=== PATIENT | female | born 1990 | race African-American/Black ===

== ENCOUNTER 2019-09-13 22:48 | Observation (INO) | payer OTHER, SELFPAY ==
--- NOTE | 2019-09-13 22:47 | PC.NURSE ---
Spoke with Adri HELLER in L&D. Gave pt info and s/s to Adri HELLER. Pt taken to L&D dept via ED w/c by Alejandro Joaquin RN.
[2019-09-13 23:20] VITALS: BP 120/59; PULSE 88
[2019-09-13 23:31] VITALS: BP 117/63; PULSE 86
[2019-09-13 23:46] VITALS: BP 123/67; PULSE 88
[2019-09-14 00:01] VITALS: BP 112/55; PULSE 74
[2019-09-14 00:17] VITALS: BP 125/66; PULSE 115
[2019-09-14 00:39] LABS: Add Urine Microscopic? YES; Appearance Urine Cloudy (Clear); Bacteria Urine 2+ /hpf; Bilirubin Urine Negative (Negative); Blood Urine Negative (Negative); Color Urine Yellow (Yellow); Glucose Urine UA Negative (Negative); Ketones Urine Negative (Negative); Leukocyte Esterase Ur Trace LEU/UL (NEGATIVE); Mucus Urine Few /lpf; Nitrate Urine Negative (Negative); Protein Urine 2+ mg/dL (Negative); Specific Grav Ur 1.026 (1.001-1.035); Squamous Epithelial Cell Urine Many /hpf (Few)
--- NOTE | 2019-09-14 01:28 | PC.NURSE ---
pt came from ER @2248-09/13/2019 c/o spotting, vaginal pain, abdominal pain that started today. Pt sees at [facility]. pt denies any spotting or bleeding after using bathroom here. 09/14/2019-0004- Spoke with Dr. Alvarez, discussed reason for visit, cervical exam ordered and send UA. will call with results. 09/14/2019-0045- Spoke with Dr. Alvarez, UA results discussed. will send UCX and prescribe pt Macrobid 100mg BID x 7 days. pt to d/c home and to call her in am to make regular appt and f/u appt. pt to return if further concerns.
--- NOTE | 2019-09-22 14:43 | PM.OBTRLD ---
OB - Triage/Final Diagnosis Evaluation Laboratory results: Laboratory Tests 09/14/19 00:24 Urine Color Yellow Urine Appearance Cloudy H Urine pH 6.0 Ur Specific [place] 1.026 Urine Protein 2+ H Urine Glucose (UA) Negative Urine Ketones Negative Ur Blood (Man) Negative Urine Nitrate Negative Urine Bilirubin Negative Urine Urobilinogen 2.0 H Ur Leukocyte Esterase Trace H Urine RBC 3-5 H Urine WBC 7-9 H Ur Squamous Epith Cells Many H Urine Bacteria 2+ H Hyaline Casts Urine Mucus Few H Urine Yeast (Budding) Final Diagnosis (1) False labor: Code(s): O47.9 - False labor, unspecified Status: Acute
== END 2019-09-14 01:00 | disposition home or self-care (01) ==
PROVIDERS: Admitting Provider Obstetrics & Gynecology; Visit Provider Obstetrics & Gynecology
DX: O47.03 False labor before 37 completed weeks of gestation, third trimester (principal); Z3A.34 34 weeks gestation of pregnancy
CPT/HCPCS: 81001; 87086; 87088; G0378; G0379

== ENCOUNTER 2020-01-26 21:15 | Emergency (ER) | payer OTHER, SELFPAY ==
--- NOTE | ~2020-01-26 | XR_ITS ---
EXAMINATION: XR chest 1V portable DATE: 01/26/2020 22:14 INDICATION: Shortness of breath and fever and cough. TECHNIQUE: A single frontal view of the chest was obtained. COMPARISON: Chest 2 views 06/15/2019 FINDINGS: The chest demonstrates clear lungs without pneumonia, pleural effusion, or pneumothorax. Th e heart size is normal. IMPRESSION: 1. No acute cardiopulmonary disease. Reviewed, dictated and finalized at location A.
[2020-01-26 21:18] VITALS: BP 149/89; PULSE 131; RESP 24; TEMP 38.7; O2SAT 97
[2020-01-26 21:40] LABS: Basophils Percent Auto 0.2 % (0.2-1.2); Eosinophils Percent Auto 0.8 % (0-4.4); Hematocrit 35.1 % (37.0-47.0); Immature Granulocyte Absolute 0.01 K/mm3 (0.00-0.031); Immature Granulocyte Percent A 0.2 % (0-0.5); Lymphocytes Absolute Auto 0.97 K/mm3 (0.9-3.2); Lymphocytes Percent Auto 18.8 % (18.3-44.2); Mean Corpuscular HGB Conc 31.3 g/dl (32-36); Mean Corpuscular Volume 79.8 fl (80-100); Mean Platelet Volume 9.9 fl (7.4-10.4); Monocytes Absolute Auto 0.6 K/mm3 (0.1-0.6); Monocytes Percent Auto 10.6 % (2.6-8.5); Neutrophils Absolute Auto 3.6 K/mm3 (1.3-6.7); Neutrophils Percent Auto 69.4 % (45.5-73.1); Platelet Count Result 329 k/mm3 (150-375); Red Cell Distribution Width 15.8 % (11.5-14.5); White Blood Count 5.2 K/mm3 (4.5-10.0)
[2020-01-26 21:51] LABS: Blood Urea Nitrogen 9 mg/dL (7-17); Calcium 9.2 mg/dL (8.4-10.2); Carbon Dioxide 25 mmol/L (22-30); Chloride 104 mmol/L (98-107); Estimated CRCL calculation 120 ml/min; Estimated Glomerular Filt Rate > 60; Glucose 99 mg/dL (65-105); Potassium 4.1 mmol/L (3.4-5.0); Sodium 136 mmol/L (137-145)
--- NOTE | 2020-01-26 22:49 | ED.SOB ---
HPI - SOB/Dyspnea General Chief Complaint: Shortness of Breath/Dyspnea Stated Complaint: my asthma Time Seen by Provider: 01/26/20 22:41 Related Data Allergies Allergy/AdvReac Type Severity Reaction Status Date / Time shellfish derived Allergy Intermediate hives Verified 02/22/19 19:42 shrimp Allergy Intermediate Other Verified 02/22/19 19:42 [facility] Past Medical History Medical History (Updated 01/27/20 @ 00:03 by Surekha Nova MD) Asthma Surgical History Surgical History (Updated 06/15/19 @ 21:05 by Harman Sneed) No history of previous surgery Social History Social History (Updated 06/15/19 @ 21:05 by Harman Sneed) Smoking status: Never smoker Gender identity (if verbalized by the patient): Female Course Reevaluation(s) Reevaluation #1: Went back into check on the patient and her lungs are completely clear after the breathing treatment. She says that she needs to COVID test because she has a 3-month-old at home. I told her that she can get that outpatient with her primary care physician or at 1 of the local clinics that offer the test. She asked for a muscle relaxer, for the pain with coughing. Date: 01/27/20 Time: 00:04 Vital Signs Vital signs: Vital Signs Temperature 101.7 F H 01/26/20 21:18 Pulse Rate 131 H 01/26/20 21:18 Respiratory Rate 24 H 01/26/20 21:18 Blood Pressure 149/89 H 01/26/20 21:18 Pulse Oximetry 97 01/26/20 21:18 Temperature 101.7 F H 01/26/20 21:18 Pulse Rate 70 01/26/20 23:09 Respiratory Rate 16 01/26/20 23:09 Blood Pressure 136/69 01/26/20 22:55 Pulse Oximetry 98 01/26/20 22:55 MDM - SOB/Dyspnea Medical Records Attestation: I reviewed the patient's medical records. Lab Data Attestation: I reviewed the patient's lab results. Result diagrams: 01/26/20 21:33 01/26/20 21:33 Labs: Lab Results 01/26/20 01/26/20 Range/Units 21:33 21:33 WBC 5.2 (4.5-10.0) K/mm3 RBC 4.40 (4.2-5.4) M/mm3 Hgb 11.0 L (12.0-15.0) g/dL Hct 35.1 L (37.0-47.0) % MCV 79.8 L (80-100) fl MCH 25.0 L (26-34) pg MCHC 31.3 L (32-36) g/dl RDW 15.8 H (11.5-14.5) % Plt Count 329 (150-375) k/mm3 MPV 9.9 (7.4-10.4) fl Immature Gran % (Auto) 0.2 (0-0.5) % Neut % (Auto) 69.4 (45.5-73.1) % Lymph % (Auto) 18.8 (18.3-44.2) % [place] % (Auto) 10.6 H (2.6-8.5) % Eos % (Auto) 0.8 (0-4.4) % Baso % (Auto) 0.2 (0.2-1.2) % Lymph # (Auto) 0.97 (0.9-3.2) K/mm3 [place] # (Auto) 0.6 (0.1-0.6) K/mm3 Eos # (Auto) 0.0 (0-0.3) K/mm3 Baso # (Auto) 0.0 (0.0-0.1) K/mm3 Abs Immat Gran (auto) 0.01 (0.00-0.031) K/mm3 Absolute Neuts (auto) 3.6 (1.3-6.7) K/mm3 Absolute Nucleated RBC 0.0 (0.0-0.012) K/mm3 Nucleated RBC % 0.0 (0.0-0.2) % Sodium 136 L (137-145) mmol/L Potassium 4.1 (3.4-5.0) mmol/L Chloride 104 (98-107) mmol/L Carbon Dioxide 25 (22-30) mmol/L BUN 9 (7-17) mg/dL Creatinine 0.80 (0.7-1.0) mg/dL Estim Creat Clear Calc 120 ml/min Estimated GFR > 60 (59 - ) Glucose 99 (65-105) mg/dL Calcium 9.2 (8.4-10.2) mg/dL Imaging Data Attestation: I personally reviewed and interpreted this imaging study as follows: My impression: NAD Discharge Plan Discharge Clinical Impression: Asthma attack Qualifiers: Asthma severity: mild Asthma persistence: unspecified Qualified Code(s): J45.901 - Unspecified asthma with (acute) exacerbation Patient Disposition: Home, Self-Care Condition: Improved Instructions: Asthma (ED) Prescriptions: New methocarbamol 500 mg tablet 500 mg PO TID Qty: 10 RF: 0 No Action nitrofurantoin monohyd/m-cryst [Macrobid] 100 mg Capsule 100 mg PO Q12H Qty: 14 RF: 0 Follow-up/Referrals: PHYSICIAN,LATHE TENDER [Primary Care Provider] - Jerry Manriquez MD [Physician] - (Call make a new patient appointment) Time of Disposition: 00:03
[2020-01-26 22:55] VITALS: BP 136/69; PULSE 105; RESP 18; O2SAT 98
[2020-01-26] MEDS: ACETAMINOPHEN 500 MG TABLET 1000 MG PO (23:00)
[2020-01-26 23:01] VITALS: PULSE 66; RESP 16
[2020-01-26] MEDS: ALBUTEROL SULFATE NEB 2.5 MG/3 ML INH 5 MG INHALATION (23:01)
--- NOTE | 2020-01-26 23:05 | PC.NURSE ---
Patient reports wanting to be tested for Covid and also requesting a prescription for muscle relaxers at discharge, EDP aware.
[2020-01-26 23:09] VITALS: PULSE 70; RESP 16
[2020-01-27 00:09] VITALS: BP 142/89; PULSE 97; RESP 18; TEMP 37.3; O2SAT 99
== END 2020-01-27 00:10 | disposition home or self-care (01) ==
PROVIDERS: Emergency Provider Emergency Medicine
DX: J45.901 Unspecified asthma with (acute) exacerbation (principal)
CPT/HCPCS: 36415; 71045; 80048; 85025; 94640; 99283; A9270

== ENCOUNTER 2020-01-29 18:57 | Emergency (ER) | payer OTHER, SELFPAY ==
[2020-01-29 19:06] VITALS: BP 128/82; PULSE 110; RESP 18; TEMP 36.6; O2SAT 96
--- NOTE | 2020-01-29 20:12 | ECG_ITS ---
Measurements Intervals [place] Rate: 100 P: 14 AL: 136 QRS: 0 QRSD: 92 T: 22 QT: 330 QTc: 426 Interpretive Statements SINUS TACHYCARDIA INCOMPLETE RIGHT BUNDLE BRANCH BLOCK VOLTAGE CRITERIA FOR LVH BORDERLINE ECG Electronically Signed On 01-30-2020 13:57:23 CDT by Moises Rapp D.O.
[2020-01-29 20:26] VITALS: BP 126/80; PULSE 100; RESP 21; O2SAT 93
--- NOTE | 2020-01-29 20:26 | ED.ASTHMA ---
HPI - Asthma General Chief Complaint: Asthma Stated Complaint: asthma Time Seen by Provider: 01/29/20 19:40 Source: patient Mode of arrival: ambulatory Limitations: no limitations History of Present Illness HPI Narrative: This patient is a 29 year old female with history of asthma who presents for evaluation of cough, chest pain and upper back pain. Patient states 4 days ago she developed cough productive with yellow sputum. She also reports mid chest pain with coughing and inspiration for 4 days. She also reports upper back pain. She had a fever 2 days ago when she was evaluated in ER. She states she has returned because her symptoms have not resolved and she did not receive a COVID test. She denies shortness of breath, nausea, vomiting or dizziness. She has not had to use in her nebulizer or inhaler. Her symptoms have not worsened. She is only taking a muscle relaxer for her symptoms. Related Data Allergies Allergy/AdvReac Type Severity Reaction Status Date / Time shellfish derived Allergy Intermediate hives Verified 02/22/19 19:42 shrimp Allergy Intermediate Other Verified 02/22/19 19:42 Review of Systems Review of Systems: All systems reviewed & are unremarkable except as noted in HPI and below Constitutional: Constitutional: Denies chills and Reports fever(s) ENT: Denies nasal congestion and Denies sore throat Cardiovascular: Cardiovascular: Reports chest pain, Denies rapid heart rate and Denies radiating jaw, neck or arm pain Respiratory: Respiratory: Reports chest congestion, Reports cough and Denies dyspnea Gastrointestinal: Gastrointestinal: Denies abdominal pain, Denies diarrhea, Denies nausea and Denies vomiting Musculoskeletal: Musculoskeletal: Reports back pain PMFSH Past Medical History Medical History Asthma Surgical History Surgical History (Updated 06/15/19 @ 21:05 by Harman Sneed) No history of previous surgery Social History Social History (Updated 06/15/19 @ 21:05 by Harman Sneed) Smoking status: Never smoker Gender identity (if verbalized by the patient): Female Exam Narrative: Exam Narrative: GENERAL: Well-appearing, well-nourished, and in no acute distress. HEAD: Normocephalic, atraumatic EYES: PERRLA and EOMI, conjunctiva clear without discharge EARS: TM's clear bilaterally without erythema or dullness NOSE: Nares clear, no rhinorrhea or epistaxis THROAT:Mucous membranes moist, Oropharynx normal without erythema, exudate, peritonsillar swelling or fluctuance NECK: Supple, without lymphadenopathy or mass RESPIRATORY: No respiratory distress, Airway patent, Respirations non-labored, Clear to auscultation without rales, rhonchi or wheeze HEART: Regular rate and rhythm. No murmur heard. Normal peripheral pulses. ABDOMEN: Soft, nontender, nondistended, normal active bowel sounds. No masses. No rebound or guarding, No organomegaly. EXTREMITIES: No edema, normal strength with full range of motion. SKIN: Warm, dry, normal color without rash NEURO: Alert and oriented x3. CN 2-12 grossly intact. No focal deficits. PSYCH: Normal mood and affect. Course Reevaluation(s) Reevaluation #1: I reviewed patient's last visit. She had negative chest xray. Her d dimer is negative. I do not believe she needs another chest xray as she has not hypoxia, wheezing or respiratory distress. It seems patient really just wants a COVID test. PCP is Dr. Devi Childs Date: 01/29/20 Time: 21:18 Vital Signs Vital signs: Vital Signs Temperature 97.8 F 01/29/20 19:06 Pulse Rate 110 H 01/29/20 19:06 Respiratory Rate 18 01/29/20 19:06 Blood Pressure 128/82 01/29/20 19:06 Pulse Oximetry 96 01/29/20 19:06 Temperature 97.8 F 01/29/20 19:06 Pulse Rate 99 01/29/20 21:34 Respiratory Rate 32 H 01/29/20 21:34 Blood Pressure 130/73 01/29/20 21:34 Pulse Oximetry 100 01/29/20 21:[address] [facility] -
[2020-01-29 20:34] LABS: Basophils Percent Auto 0.2 % (0.2-1.2); Eosinophils Percent Auto 0.4 % (0-4.4); Hematocrit 35.1 % (37.0-47.0); Hemoglobin 10.5 g/dL (12.0-15.0); Immature Granulocyte Absolute 0.01 K/mm3 (0.00-0.031); Immature Granulocyte Percent A 0.2 % (0-0.5); Lymphocytes Absolute Auto 1.64 K/mm3 (0.9-3.2); Mean Corpuscular HGB Conc 29.9 g/dl (32-36); Mean Corpuscular Hemoglobin 24.6 pg (26-34); Mean Corpuscular Volume 82.4 fl (80-100); Mean Platelet Volume 10.5 fl (7.4-10.4); Monocytes Absolute Auto 0.4 K/mm3 (0.1-0.6); Monocytes Percent Auto 8.5 % (2.6-8.5); Neutrophils Absolute Auto 2.7 K/mm3 (1.3-6.7); Neutrophils Percent Auto 56.7 % (45.5-73.1); Platelet Count Result 292 k/mm3 (150-375); Red Blood Count 4.26 M/mm3 (4.2-5.4); Red Cell Distribution Width 15.5 % (11.5-14.5); White Blood Count 4.8 K/mm3 (4.5-10.0)
[2020-01-29 20:41] LABS: INR 1.1; Partial Thromboplastin Time 31.7 SECONDS (22.3-36.8); Prothrombin Time 13.7 Seconds (11.1-14.7)
[2020-01-29 20:43] LABS: Hypochromasia 1+ (NORMAL); Platelet Estimate Adequate (Adequate)
[2020-01-29 20:44] LABS: Alanine Aminotransferase 11 U/L (4-35); Albumin Level 4.1 g/dL (3.5-5.1); Alkaline Phosphatase 60 U/L (38-126); Aspartate Amino Transferase 22 U/L (14-36); Bilirubin,Total 0.1 mg/dL (0.2-1.3); Blood Urea Nitrogen 11 mg/dL (7-17); Calcium 8.9 mg/dL (8.4-10.2); Carbon Dioxide 27 mmol/L (22-30); Chloride 103 mmol/L (98-107); D Dimer 0.39 ug/mL (<0.48); Estimated CRCL calculation 120 ml/min; Estimated Glomerular Filt Rate > 60; Glucose 113 mg/dL (65-105); Ovalocytes 1+ (NORMAL); Sodium 137 mmol/L (137-145)
[2020-01-29] MEDS: KETOROLAC (*BKC) 60 MG/2 ML VIAL IM (21:08)
[2020-01-29 21:09] VITALS: BP 126/81; PULSE 94; RESP 17; O2SAT 97
[2020-01-29 21:14] VITALS: BP 122/70; PULSE 78; RESP 18; O2SAT 98
[2020-01-29 21:34] VITALS: BP 130/73; PULSE 99; RESP 32; O2SAT 100
[2020-01-30 12:43] LABS: SARS-CoV-2 RNA PCR Positive
== END 2020-01-29 21:36 | disposition home or self-care (01) ==
PROVIDERS: Emergency Provider General Practice
DX: U07.1 COVID-19 (principal); R00.0 Tachycardia, unspecified
CPT/HCPCS: 36415; 80053; 85025; 85380; 85610; 85730; 87635; 93005; 96372; 99283; C9803; J1885; U0003

== ENCOUNTER 2020-07-18 16:32 | Emergency (ER) | payer OTHER, SELFPAY ==
--- NOTE | ~2020-07-18 | CT_ITS ---
EXAMINATION: CTA chest PE protocol DATE: 07/18/2020 17:47 INDICATION: Chest pain, history of COVID 19, elevated d-dimer TECHNIQUE: Computed tomography angiography (CTA) of the chest was performed with 100 mL Omnipaque-350 intravenous contrast timed to evaluate the pulmonary arteries. Coronal maximum intensity projection 3D-reconstructions were created by the technologist. The dose-length product (DLP) was 900.29 mGy-cm. Automated exposure control and iterative reconstruction technique were employed. COMPARISON: None. FINDINGS: The pulmonary arteries are moderately well-opacified. No pulmonary embolism is identified. The lungs are free of acute opacities. There is no pleural effusion or pneumothorax. No pathologicall y enlarged thoracic lymph nodes are identified. The heart size is normal. Triangular soft tissue dens ity of the anterior mediastinum likely reflects residual thymus. IMPRESSION: 1. No pulmonary embolism or acute cardiopulmonary abnormality. Reviewed, dictated and finalized at location A. ING ENGINEER
--- NOTE | ~2020-07-18 | XR_ITS ---
EXAMINATION: XR chest 2V DATE: 07/18/2020 17:12 INDICATION: Chest pain TECHNIQUE: Frontal and lateral views of the chest are obtained COMPARISON: 01/26/2020 FINDINGS: The lungs are free of acute opacities. There is no pleural effusion or pneumothorax. The ca rdiomediastinal silhouette is normal. The visualized bones and soft tissues are unremarkable. IMPRESSION: 1. No acute cardiopulmonary abnormality. Reviewed, dictated and finalized at location A. CARMAN
--- NOTE | 2020-07-18 16:39 | ED.CHESTPAIN ---
HPI - Chest Pain General Chief Complaint: Chest Pain Stated Complaint: CP Time Seen by Provider: 07/18/20 16:39 Source: patient Mode of arrival: ambulatory Limitations: no limitations History of Present Illness HPI narrative: Patient is a 29-year-old female who presents for evaluation of intermittent chest pain over the past week. Patient states she intermittently will experience sharp chest pain in the center of her chest that seem to occur randomly. She does not report any radiation of the pain to the neck, jaw, shoulders, back or lower flanks. No associated palpitations, nausea, vomiting, diaphoresis or shortness of breath with the pain. Patient gets a Depo shot. She does not smoke. She had a Covid infection over the summer in January, was not hospitalized for this. No recent heavy lifting. Exertional activities do not worsen the symptoms. No fever, chills, cough. No leg swelling or calf pain. No recent car or air travel. No history of DVT. No current pain at the time of assessment in the ER. She states she was putting off getting checked out but wanted to ensure nothing serious was going on. Related Data Allergies Allergy/AdvReac Type Severity Reaction Status Date / Time shellfish derived Allergy Intermediate hives Verified 02/22/19 19:42 shrimp Allergy Intermediate Other Verified 02/22/19 19:42 Review of Systems Review of Systems: Narrative: CONSTITUTIONAL: Denies fever, chills, or sweats. ENT: Denies rhinorrhea, congestion, sore throat, or otalgia. CARDIOVASCULAR: Denies current chest pain, palpitations, or edema. RESPIRATORY: Denies cough or dyspnea. GASTROINTESTINAL: Denies abdominal pain, nausea, vomiting, or diarrhea. GENITOURINARY: Denies dysuria or hematuria. SKIN: Denies rash or itching. MUSCULOSKELETAL: Denies back pain, joint pain, or myalgia. NEUROLOGIC: Denies headache, numbness, or weakness. [facility] Past Medical History Medical History (Updated 07/18/20 @ 18:15 by Elisha Rowland MD) Asthma Surgical History Surgical History No history of previous surgery Social History Social History Smoking status: Never smoker Gender identity (if verbalized by the patient): Female Exam Narrative: Exam Narrative: GENERAL: Awake, alert, conversant HEAD: Normocephalic, atraumatic. EYES: PERRLA and EOMI. ENT: Nares clear, no rhinorrhea or epistaxis. Mucous membranes moist. NECK: Supple. CHEST: No respiratory distress, breathing even and non labored, no chest wall tenderness HEART: Regular rate, sinus rhythm ABDOMEN:Non distended, non tender EXTREMITIES: Normal range of motion. No edema. SKIN: Warm, dry, no rash. NEURO:No focal deficits. Alert and oriented x3 Course Vital Signs Vital signs: Vital Signs Temperature 36.7 C 07/18/20 16:40 Pulse Rate 103 H 07/18/20 16:40 Respiratory Rate 17 07/18/20 16:40 Blood Pressure 136/73 07/18/20 16:40 Pulse Oximetry 97 07/18/20 16:40 Temperature 36.7 C 07/18/20 16:40 Pulse Rate 101 H 07/18/20 16:44 Respiratory Rate 17 07/18/20 16:40 Blood Pressure 136/73 07/18/20 16:40 Pulse Oximetry 97 07/18/20 16:40 MDM - Chest Pain MDM Narrative Medical decision making narrative: Patient presented for evaluation of chest pain which is intermittent in nature and no current symptoms in the ER. Patient's EKG was done, no significant abnormalities. No evidence of ischemic changes. Pain seems quite atypical in nature. No other anginal features. Cardiac risk factors reviewed. Patient is felt low risk for ACS and reasonable for further risk stratification testing as an outpatient. No evidence of PE on imaging. No troponin elevation. Given symptoms have been ongoing over the past week I would suspect her troponin to be elevated if this were anginal. No pneumonia seen on evaluation today. No vascular etiology found on imaging. Reina
[2020-07-18 16:40] VITALS: BP 136/73; PULSE 103; RESP 17; TEMP 36.7; O2SAT 97
--- NOTE | 2020-07-18 16:40 | ECG_ITS ---
Measurements Intervals [place] Rate: 95 P: 50 ND: 152 QRS: 10 QRSD: 104 T: 17 QT: 351 QTc: 442 Interpretive Statements SINUS RHYTHM WITH SINUS ARRHYTHMIA VOLTAGE CRITERIA FOR LVH BORDERLINE T WAVE ABNORMALITY- INFERIOR LEADS BASELINE ARTIFACT- V5 BORDERLINE ECG Electronically Signed On 07-18-2020 19:16:32 INSULATION MECHANIC by Moises Rapp D.O.
[2020-07-18 16:44] VITALS: PULSE 101
[2020-07-18 16:51] LABS: Basophils Absolute Auto 0.1 K/mm3 (0.0-0.1); Basophils Percent Auto 0.8 % (0.2-1.2); Eosinophils Absolute Auto 0.2 K/mm3 (0-0.3); Eosinophils Percent Auto 1.6 % (0-4.4); Hematocrit 34.9 % (37.0-47.0); Hemoglobin 10.9 g/dL (12.0-15.0); Immature Granulocyte Absolute 0.03 K/mm3 (0.00-0.031); Immature Granulocyte Percent A 0.3 % (0-0.5); Lymphocytes Absolute Auto 3.43 K/mm3 (0.9-3.2); Lymphocytes Percent Auto 36.8 % (18.3-44.2); Mean Corpuscular HGB Conc 31.2 g/dl (32-36); Mean Corpuscular Hemoglobin 26.3 pg (26-34); Mean Corpuscular Volume 84.3 fl (80-100); Mean Platelet Volume 10.2 fl (7.4-10.4); Monocytes Absolute Auto 0.8 K/mm3 (0.1-0.6); Neutrophils Absolute Auto 4.9 K/mm3 (1.3-6.7); Neutrophils Percent Auto 52.5 % (45.5-73.1); Platelet Count Result 314 k/mm3 (150-375); Red Blood Count 4.14 M/mm3 (4.2-5.4); Red Cell Distribution Width 14.2 % (11.5-14.5); White Blood Count 9.3 K/mm3 (4.5-10.0)
[2020-07-18 17:02] LABS: Partial Thromboplastin Time 26.9 SECONDS (22.3-36.8)
[2020-07-18 17:06] LABS: Anion Gap 8 mmol/L (8-16); Blood Urea Nitrogen 11 mg/dL (7-17); Calcium 9.1 mg/dL (8.4-10.2); Carbon Dioxide 25 mmol/L (22-30); Chloride 108 mmol/L (98-107); Estimated CRCL calculation 114 ml/min; Estimated Glomerular Filt Rate > 60; Glucose 112 mg/dL (65-105); Potassium 3.4 mmol/L (3.4-5.0); Sodium 141 mmol/L (137-145)
[2020-07-18 17:18] LABS: Troponin I < 0.012 ng/mL (0.000-0.034)
[2020-07-18 17:21] LABS: D Dimer 0.55 ug/mL (<0.48)
[2020-07-18 18:47] VITALS: BP 129/82; PULSE 77; RESP 15; O2SAT 100
== END 2020-07-18 18:48 | disposition home or self-care (01) ==
PROVIDERS: Emergency Provider Emergency Medicine
DX: R07.89 Other chest pain (principal); Z86.16 Personal history of COVID-19; J45.909 Unspecified asthma, uncomplicated; R94.31 Abnormal electrocardiogram [ECG] [EKG]
CPT/HCPCS: 36415; 71046; 71275; 80048; 84484; 85025; 85380; 85610; 85730; 93005; 99284; Q9967

== ENCOUNTER 2020-10-04 16:15 | Emergency (ER) | payer OTHER, SELFPAY ==
[2020-10-04 16:23] VITALS: BP 148/83; PULSE 105; RESP 18; TEMP 36.3; O2SAT 99
[2020-10-04 17:12] LABS: Add Urine Microscopic? YES; Appearance Urine Cloudy (Clear); Bilirubin Urine Negative (Negative); Blood Urine Negative (Negative); Color Urine Yellow (Yellow); Glucose Urine UA Negative (Negative); Ketones Urine Negative (Negative); Leukocyte Esterase Ur Trace LEU/UL (Negative); Mucus Urine Heavy /lpf; Nitrate Urine Negative (Negative); Protein Urine 2+ mg/dL (Negative); RBC Urine 0-2 /hpf (0-2); Squamous Epithelial Cell Urine Many /hpf (Few); WBC Urine 0-3 /hpf
[2020-10-04 17:15] LABS: Basophils Absolute Auto 0.1 K/mm3 (0.0-0.1); Basophils Percent Auto 0.5 % (0.2-1.2); Eosinophils Absolute Auto 0.2 K/mm3 (0-0.3); Eosinophils Percent Auto 2.6 % (0-4.4); Hematocrit 34.6 % (37.0-47.0); Hemoglobin 10.8 g/dL (12.0-15.0); Immature Granulocyte Absolute 0.02 K/mm3 (0.00-0.031); Immature Granulocyte Percent A 0.2 % (0-0.5); Lymphocytes Absolute Auto 3.03 K/mm3 (0.9-3.2); Lymphocytes Percent Auto 33.2 % (18.3-44.2); Mean Corpuscular HGB Conc 31.2 g/dl (32-36); Mean Corpuscular Hemoglobin 26.3 pg (26-34); Mean Corpuscular Volume 84.4 fl (80-100); Mean Platelet Volume 9.9 fl (7.4-10.4); Monocytes Absolute Auto 0.8 K/mm3 (0.1-0.6); Monocytes Percent Auto 8.2 % (2.6-8.5); Neutrophils Percent Auto 55.3 % (45.5-73.1); Platelet Count Result 328 k/mm3 (150-375); Red Cell Distribution Width 15.1 % (11.5-14.5); White Blood Count 9.1 K/mm3 (4.5-10.0)
[2020-10-04 17:18] LABS: Specific Grav Ur 1.032 (1.001-1.035)
[2020-10-04 17:26] LABS: Anion Gap 7 mmol/L (8-16); Blood Urea Nitrogen 11 mg/dL (7-17); Calcium 8.8 mg/dL (8.4-10.2); Carbon Dioxide 24 mmol/L (22-30); Chloride 108 mmol/L (98-107); Estimated CRCL calculation 123 ml/min; Estimated Glomerular Filt Rate > 60; Glucose 84 mg/dL (65-105); Potassium 3.8 mmol/L (3.4-5.0); Sodium 139 mmol/L (137-145)
--- NOTE | 2020-10-04 17:50 | ED.GENADULT ---
HPI - General Adult General Chief complaint: Unspecified Stated complaint: preg/requests us/asthma prob Time Seen by Provider: 10/04/20 16:37 History of Present Illness HPI narrative: Patient is a 29-year-old female who presents ER with concerns for ectopic . Patient reports that she had intercourse on 09/10/2020 when she reports that she was ovulating due to the consistency of her cervical mucus. She is not trying to get but had intercourse anyways. She went to the [facility] today to be evaluated because she had a test 1 week ago. They performed an ultrasound both transabdominally and transvaginally and could not locate her . Patient is having no lower abdominal pain or bleeding. She has no urinary frequency or urgency. Because they could not find a she opted to come here for further evaluation. She reports that they lauren some blood work today and there when I have her follow-up but she is not sure that she wants to continue to get care through them. Patient is G5, . Related Data Home Medications Medication Instructions Recorded Confirmed albuterol sulfate 10/04/20 10/04/20 albuterol sulfate INHALATION 10/04/20 montelukast mg 10/04/20 Allergies Allergy/AdvReac Type Severity Reaction Status Date / Time shellfish derived Allergy Intermediate hives Verified 10/04/20 16:30 shrimp Allergy Intermediate Other Verified 10/04/20 16:30 Review of Systems Review of Systems: All systems reviewed & are unremarkable except as noted in HPI and below Constitutional: Constitutional: Denies chills and Denies fever(s) Gastrointestinal: Gastrointestinal: Denies abdominal pain, Denies GI cramping, Denies nausea and Denies vomiting Genitourinary: Genitourinary: Denies abnormal vaginal bleeding, Denies dysuria, Denies urinary urgency and Denies vaginal discharge PMFSH Past Medical History Medical History (Updated 10/04/20 @ 18:08 by Donald Forrester MD) Asthma Surgical History Surgical History No history of previous surgery Social History Social History Smoking status: Never smoker Gender identity (if verbalized by the patient): Female Exam Narrative: Exam Narrative: GENERAL: Well-appearing, well-nourished, and in no acute distress. HEAD: Normocephalic, atraumatic. ENT: Mucous membranes moist. CHEST: Clear to auscultation. No respiratory distress. HEART: Regular rate and rhythm. Normal peripheral pulses. ABDOMEN: Soft, nontender, nondistended. EXTREMITIES: Normal range of motion. No edema. NEURO: Alert and oriented x3. PSYCH: Normal mood and affect. Course Course Emergency Course: I discussed the case with Dr. Nicole. He recommends the patient receive a second beta hCG level in 48 hours. We will write an order for this to occur. Patient should follow-up in his office and contact them on Tuesday. Patient has been given strict return precautions and she has verbalized understanding. Vital Signs Vital signs: Vital Signs Temperature 97.3 F L 10/04/20 16:23 Pulse Rate 105 H 10/04/20 16:23 Respiratory Rate 18 10/04/20 16:23 Blood Pressure 148/83 H 10/04/20 16:23 Pulse Oximetry 99 10/04/20 16:23 Temperature 97.3 F L 10/04/20 16:23 Pulse Rate 105 H 10/04/20 16:23 Respiratory Rate 18 10/04/20 16:23 Blood Pressure 148/83 H 10/04/20 16:23 Pulse Oximetry 99 10/04/20 16:23 Medical Decision Making Vital Signs Vital Signs: Vital Signs Temperature 97.3 F L 10/04/20 16:23 Pulse Rate 105 H 10/04/20 16:23 Respiratory Rate 18 10/04/20 16:23 Blood Pressure 148/83 H 10/04/20 16:23 Pulse Oximetry 99 10/04/20 16:23 Temperature 97.3 F L 10/04/20 16:23 Pulse Rate 105 H 10/04/20 16:23 Respiratory Rate 18 10/04/20 16:23 Blood Pressure 148/83 H 10/04/20 16:23 Pulse Oximetry 99 10/04/20 16:23 Lab Puneet
[2020-10-04 18:27] VITALS: BP 138/82; PULSE 106; RESP 18; O2SAT 100
== END 2020-10-04 18:28 | disposition home or self-care (01) ==
PROVIDERS: Emergency Provider Emergency Medicine
DX: O36.80X0 Pregnancy with inconclusive fetal viability, not applicable or unspecified (principal); Z3A.00 Weeks of gestation of pregnancy not specified; O99.511 Diseases of the respiratory system complicating pregnancy, first trimester; J45.909 Unspecified asthma, uncomplicated
CPT/HCPCS: 36415; 80048; 81001; 81025; 84702; 85025; 85461; 99283

== ENCOUNTER 2020-10-10 13:41 | Emergency (ER) | payer OTHER, SELFPAY ==
--- NOTE | ~2020-10-10 | US_ITS ---
US OB <=14 wk fetus w TV 10/10/2020 15:06 Indication: Ectopic . Miscarriage. Leg erythema. Swelling. Procedure: Realtime early obstetrical ultrasound including transabdominal and transvaginal technique Comparison: No prior studies for comparison. Findings: There is a twin living intrauterine pregnancies, diamniotic, dichorionic. Twin A hear t rate is 90 bpm. Twin B heart rate is 85 bpm. No evidence for subchorionic hemorrhage. [place]-r ump length measures 0.28 cm for twin A and 0.29 cm for twin B corresponding to 5 week 6 day gestation . There is a 5.3 cm corpus luteal cyst of the right ovary. Impression: 1: Twin living dichorionic, diamniotic intrauterine corresponding to an estimated gestation al age of 5 weeks 6 days (EDC 06/06/2021). 2: Right ovarian corpus luteal cyst measuring 5.3 cm. Reviewed, dictated and finalized at location B. Impression: 1: Twin living dichorionic, diamniotic intrauterine corresponding to an estimated gestational age of 5 weeks 6 days (EDC 06/06/2021). 2: Right ovarian corpus luteal cyst measuring 5.3 cm.
--- NOTE | 2020-10-10 14:06 | ED.FEMALEGU ---
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 Last menstrual period August 19, 2020, patient is , last pelvic ultrasound was 2 weeks ago and showed that the patient have twin. Patient denies any fever, chills, nausea, vomiting, diarrhea, constipation, vaginal bleeding or discharge. Patient also denies any urinary symptoms. Patient is 5 para 3 1 Related Data Home Medications Medication Instructions Recorded Confirmed albuterol sulfate INHALATION 10/04/20 montelukast mg 10/04/20 Allergies Allergy/AdvReac Type Severity Reaction Status Date / Time kiwi Allergy Intermediate Swelling Verified 10/10/20 14:14 shellfish derived Allergy Intermediate hives Verified 10/10/20 13:58 shrimp Allergy Intermediate Other Verified 10/10/20 13:58 Review of Systems Review of Systems: Narrative: CONSTITUTIONAL: Denies fever, chills, or sweats. EYES: Denies visual changes, redness, or discharge. ENT: Denies rhinorrhea, congestion, sore throat, or otalgia. CARDIOVASCULAR: Denies chest pain, palpitations, or edema. RESPIRATORY: Denies cough or dyspnea. GASTROINTESTINAL: Denies abdominal pain, nausea, vomiting, or diarrhea. GENITOURINARY: Denies dysuria or hematuria. SKIN: Denies rash or itching. MUSCULOSKELETAL: Denies back pain, joint pain, or myalgia. NEUROLOGIC: Denies headache, numbness, or weakness. PSYCHIATRIC: Denies anxiety or depression. PMFSH Past Medical History Medical History Asthma Surgical History Surgical History No history of previous surgery Social History Social History Smoking status: Never smoker Gender identity (if verbalized by the patient): Female Exam Narrative: Exam Narrative: General appearance: Well-developed, well-nourished, morbidly obese Skin: Normal color Head: Normocephalic, nontraumatic Eyes: Clear conjunctiva ENT: Oropharynx normal, ears normal, nose normal Neck: Supple, nontender Chest and respiratory: Airway patent, no respiratory distress, no accessory muscle use Heart: Regular rate/rhythm Abdomen: Soft, nontender, no organomegaly, quiet bowel sounds Vascular: Normal peripheral pulses, normal capillary refill. 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 Labs, pelvic ultrasound and UA ordered. Further plan to follow Differential Diagnosis Differential diagnosis: Likely urinary tract infection, cystitis and other (Miscarriage) Lab Data Result diagrams: 10/10/20 14:14 Labs: Lab R
[2020-10-10 14:11] VITALS: BP 141/86; PULSE 76; RESP 16; TEMP 36.7; O2SAT 98
[2020-10-10 14:26] LABS: Basophils Percent Auto 0.4 % (0.2-1.2); Eosinophils Absolute Auto 0.1 K/mm3 (0-0.3); Eosinophils Percent Auto 1.4 % (0-4.4); Hematocrit 35.4 % (37.0-47.0); Hemoglobin 11.1 g/dL (12.0-15.0); Immature Granulocyte Absolute 0.02 K/mm3 (0.00-0.031); Immature Granulocyte Percent A 0.2 % (0-0.5); Lymphocytes Absolute Auto 2.67 K/mm3 (0.9-3.2); Lymphocytes Percent Auto 31.3 % (18.3-44.2); Mean Corpuscular HGB Conc 31.4 g/dl (32-36); Mean Corpuscular Hemoglobin 26.4 pg (26-34); Mean Corpuscular Volume 84.1 fl (80-100); Mean Platelet Volume 9.8 fl (7.4-10.4); Monocytes Absolute Auto 0.4 K/mm3 (0.1-0.6); Neutrophils Absolute Auto 5.3 K/mm3 (1.3-6.7); Neutrophils Percent Auto 61.7 % (45.5-73.1); Platelet Count Result 309 k/mm3 (150-375); Red Blood Count 4.21 M/mm3 (4.2-5.4); Red Cell Distribution Width 14.7 % (11.5-14.5); White Blood Count 8.5 K/mm3 (4.5-10.0)
--- NOTE | 2020-10-10 14:29 | PC.NURSE ---
Per chart review, pt had US in ED 10/04/2020 in [place] ED, and unable to determine viability of . pt instructed to f/u with OB for repeat hcg quant level in 48 hours. no record of f/u. no evidence of pt with twins at present. awaiting this visit US and repeat labs.
== END 2020-10-10 16:17 | disposition home or self-care (01) ==
PROVIDERS: Emergency Provider Emergency Medicine
DX: O30.041 Twin pregnancy, dichorionic/diamniotic, first trimester (principal); Z3A.01 Less than 8 weeks gestation of pregnancy; O34.81 Maternal care for other abnormalities of pelvic organs, first trimester; N83.11 Corpus luteum cyst of right ovary; O99.511 Diseases of the respiratory system complicating pregnancy, first trimester; J45.909 Unspecified asthma, uncomplicated
CPT/HCPCS: 36415; 76801; 76817; 84702; 85025; 99284

== ENCOUNTER 2020-10-21 13:54 | Emergency (ER) | payer OTHER, SELFPAY ==
--- NOTE | ~2020-10-21 | US_ITS ---
EXAMINATION: US pelvic complete w TV DATE: 10/21/2020 15:49 INDICATION: Vaginal bleeding after medical . TECHNIQUE: Multiple transabdominal and endovaginal sonographic images of the pelvis were obtained. COMPARISON: 10/10/2020 FINDINGS: The uterus measures 10.5 x 7.0 x 4.6 cm. The endometrial complex measures 2.4 cm. No intrau terine gestational sac is identified. The left ovary is not visualized however no left adnexal abnorm ality is seen. The right ovary measures 6.6 x 5.0 x 6.2 cm and contains a 5.7 cm cyst. There is jhonatan l vascular flow in the right ovary. There is no free fluid in the pelvis. IMPRESSION: 1. Thickened endometrium which could reflect resolving changes of recent medical . No intraut erine gestational sac identified. Although no gestational sac is identified, findings could reflect r etained products of conception warranting D&C. Recommend OB assessment to determine if symptoms are e xpected given the patient's clinical history. 2. Right adnexal cyst. Follow-up pelvic ultrasound in 12 months is recommended. Reviewed, dictated and finalized at location A. IMPRESSION: 1. Thickened endometrium which could reflect resolving changes of recent medica l . No intrauterine gestational sac identified. Although no gestational sac is identified, findings could reflect retained products of conception cas anting D&C. Recommend OB assessment to determine if symptoms are expected given the patient's clinical history. 2. Right adnexal cyst. Follow-up pelvic ultrasound in 12 months is recommended.
[2020-10-21 13:55] VITALS: BP 150/67; PULSE 84; RESP 16; TEMP 36.6; O2SAT 99
[2020-10-21 14:13] LABS: Basophils Absolute Auto 0.1 K/mm3 (0.0-0.1); Basophils Percent Auto 0.5 % (0.2-1.2); Eosinophils Absolute Auto 0.2 K/mm3 (0-0.3); Eosinophils Percent Auto 1.7 % (0-4.4); Hematocrit 33.2 % (37.0-47.0); Hemoglobin 10.4 g/dL (12.0-15.0); Immature Granulocyte Absolute 0.03 K/mm3 (0.00-0.031); Immature Granulocyte Percent A 0.3 % (0-0.5); Lymphocytes Absolute Auto 3.42 K/mm3 (0.9-3.2); Lymphocytes Percent Auto 33.3 % (18.3-44.2); Mean Corpuscular HGB Conc 31.3 g/dl (32-36); Mean Corpuscular Hemoglobin 26.8 pg (26-34); Mean Corpuscular Volume 85.6 fl (80-100); Mean Platelet Volume 9.9 fl (7.4-10.4); Monocytes Absolute Auto 0.7 K/mm3 (0.1-0.6); Monocytes Percent Auto 6.7 % (2.6-8.5); Neutrophils Absolute Auto 5.9 K/mm3 (1.3-6.7); Neutrophils Percent Auto 57.5 % (45.5-73.1); Platelet Count Result 301 k/mm3 (150-375); Red Blood Count 3.88 M/mm3 (4.2-5.4); Red Cell Distribution Width 14.8 % (11.5-14.5); White Blood Count 10.3 K/mm3 (4.5-10.0)
--- NOTE | 2020-10-21 15:02 | ED.FEMALEGU ---
HPI - Female Genitourinary General Chief complaint: Vaginal Bleeding Stated complaint: vaginal bleeding Time Seen by Provider: 10/21/20 15:02 History of Present Illness HPI Narrative: SHe had a medical for twin gestation at approximately 7 weeks. Final pill taken 4 days ago. She reports seeing both sacks pass. She has had vaginal bleeding and cramping since that time, which she feels may be getting worse. She is going through about 1 pad per hour. She called the clinic and they told her that her symptoms sound normal. No weakness, dizziness, SOB. She is concerned that she may need a D&C Related Data Home Medications Medication Instructions Recorded Confirmed albuterol sulfate INHALATION 10/04/20 montelukast 10 mg PO DAILY 10/04/20 budesonide-formoterol [Symbicort] INHALATION PRN 10/21/20 Allergies Allergy/AdvReac Type Severity Reaction Status Date / Time kiwi Allergy Intermediate Swelling Verified 10/21/20 15:03 shellfish derived Allergy Intermediate hives Verified 10/21/20 15:03 shrimp Allergy Intermediate Other Verified 10/21/20 15:03 Review of Systems Review of Systems: All systems reviewed & are unremarkable except as noted in HPI and below Constitutional: Constitutional: Reports as per HPI Cardiovascular: Cardiovascular: Denies chest pain Respiratory: Respiratory: Denies dyspnea Gastrointestinal: Gastrointestinal: Denies constipation, Denies diarrhea, Denies nausea and Denies vomiting Genitourinary: Genitourinary: Denies dysuria Neurologic: Denies dizziness and Denies weakness PMFSH Past Medical History Medical History Asthma Surgical History Surgical History No history of previous surgery Social History Social History Smoking status: Never smoker Gender identity (if verbalized by the patient): Female Exam Const: General: healthy appearing, no acute distress and alert Orientation/consciousness: patient oriented x3 HENMT: Head: normal to inspection Neck: Neck: normal visual inspection Resp: Effort & Inspection: normal respiratory effort Auscultation: clear to auscultation bilaterally, no rales, no rhonchi and no wheezes Cardio: Jugular venous distension: no JVD Rate: regular rate Rhythm: regular rhythm Heart sounds: no murmurs GI: Inspection: non-distended GI Palp: Yes Soft to palpation and No Tenderness to palpation present (GI) Skin: General skin exam: normal color Neuro: General: patient oriented x3 and moves all extremities Speech: normal speech Extrem: General: no edema Psych: Appearance: well kempt Affect: normal affect Course Vital Signs Vital signs: Vital Signs Temperature 36.6 C 10/21/20 13:55 Pulse Rate 84 10/21/20 13:55 Respiratory Rate 16 10/21/20 13:55 Blood Pressure 150/67 H 10/21/20 13:55 Pulse Oximetry 99 10/21/20 13:55 Temperature 36.6 C 10/21/20 13:55 Pulse Rate 85 10/21/20 17:45 Respiratory Rate 18 10/21/20 17:45 Blood Pressure 131/74 10/21/20 17:45 Pulse Oximetry 100 10/21/20 17:45 MDM - Female Genitourinary MDM Narrative Medical decision making narrative: Symptoms are not unexpected. I will obtain an ultrasound to look for possible retained products. Case discussed with Dr. Arizmendi. They will see her in clinic later this week. Medical Records Attestation: I reviewed the patient's medical records. Lab Data Attestation: I reviewed the patient's lab results. Result diagrams: 10/21/20 14:05 Labs: Lab Results 10/21/20 10/21/20 10/21/20 Range/Units 14:05 14:05 14:05 WBC 10.3 H (4.5-10.0) K/mm3 RBC 3.88 L (4.2-5.4) M/mm3 Hgb 10.4 L (12.0-15.0) g/dL Hct 33.2 L (37.0-47.0) % MCV 85.6 (80-100) fl MCH 26.8 (26-34) pg MCHC 31.3 L (32-36) g/dl RDW 14.8 H (11.5-14.5)
[2020-10-21 16:11] VITALS: BP 141/68; PULSE 81
[2020-10-21 16:12] VITALS: BP 151/77; PULSE 94
[2020-10-21 16:14] VITALS: BP 158/91; PULSE 85
[2020-10-21 17:45] VITALS: BP 131/74; PULSE 85; RESP 18; O2SAT 100
== END 2020-10-21 17:50 | disposition home or self-care (01) ==
PROVIDERS: Emergency Medicine; Emergency Provider Emergency Medicine
DX: N93.9 Abnormal uterine and vaginal bleeding, unspecified (principal); J45.909 Unspecified asthma, uncomplicated
CPT/HCPCS: 36415; 76830; 76856; 84702; 85025; 85461; 99284

== ENCOUNTER 2021-05-31 06:12 | Emergency (ER) | payer OTHER, SELFPAY ==
[2021-05-31] VITALS (8 sets, daily range): BP systolic 133–144; BP diastolic 88–98; PULSE 92–110; RESP 18–20; TEMP 36.3; O2SAT 98–99
--- NOTE | 2021-05-31 06:38 | ED.GENADULT ---
HPI - General Adult General Chief complaint: Shortness of Breath/Dyspnea <Noman Cloud MD - Last Filed: 05/31/21 06:40> Stated complaint: I can't breathe <Noman Cloud MD - Last Filed: 05/31/21 06:40> Time Seen by Provider: 05/31/21 06:25 <Noman Cloud MD - Last Filed: 05/31/21 06:40> History of Present Illness HPI narrative: Patient is a 30-year-old female presents the emergency department with chief complaint of shortness of breath. Patient reports she has history of asthma and for the last several days has had increasing wheezing. Patient reports that she has had a nonproductive cough with this reports she has been using her inhaler without relief. Patient reports that feels similar to whenever she had exacerbations before in the past. Patient denies smoking denies any other medical conditions. <Noman Cloud MD - Last Filed: 05/31/21 06:40> Related Data Home medications: Home Medications Medication Instructions Recorded Confirmed albuterol sulfate INHALATION 10/04/20 montelukast 10 mg PO DAILY 10/04/20 budesonide-formoterol [Symbicort] INHALATION PRN 10/21/20 <Noman Cloud MD - Last Filed: 05/31/21 06:40> Allergies/adverse reactions: Allergies Allergy/AdvReac Type Severity Reaction Status Date / Time kiwi Allergy Intermediate Swelling Verified 10/21/20 15:03 shellfish derived Allergy Intermediate hives Verified 10/21/20 15:03 shrimp Allergy Intermediate Other Verified 10/21/20 15:03 <Noman Cloud MD - Last Filed: 05/31/21 06:40> Review of Systems Review of Systems: A 10 system review of systems was completed on the patient and is negative except for what is stated in the HPI. Nursing and ancillary documentation was reviewed. <Noman Cloud MD - Last Filed: 05/31/21 06:40> PMFSH Past Medical History Medical History: Medical History Asthma <Noman Cloud MD - Last Filed: 05/31/21 06:40> Surgical History Surgical History: Surgical History No history of previous surgery <Noman Cloud MD - Last Filed: 05/31/21 06:40> Social History Social History: Social History Smoking status: Never smoker Gender identity (if verbalized by the patient): Female <Noman Cloud MD - Last Filed: 05/31/21 06:40> Exam Narrative: GENERAL: Well-appearing, well-nourished, and in no acute distress. HEAD: Normocephalic, atraumatic. EYES: PERRLA and EOMI. ENT: Nares clear, no rhinorrhea or epistaxis. Mucous membranes moist. NECK: Supple. CHEST: Wheezing bilateral to auscultation. No respiratory distress. HEART: Regular rate and rhythm. No murmur heard. Normal peripheral pulses. ABDOMEN: Soft, nontender, nondistended, normal active bowel sounds. EXTREMITIES: Normal range of motion. No edema. SKIN: Warm, dry, no rash. NEURO: No focal deficits. Alert and oriented x3. PSYCH: Normal mood and affect. <Noman Cloud MD - Last Filed: 05/31/21 06:40> Course Reevaluation(s) Reevaluation #1: Received signout on the patient pending DuoNeb therapy and reassessment. Patient reports she is feeling improved she continues have mild wheezing. will give another DuoNeb therapy given patient's initial improvement and reassess <Amador Mitchell MD - Last Filed: 05/31/21 13:55> Date: 05/31/21 <Amador Mitchell MD - Last Filed: 05/31/21 13:55> Time: 07:42 <Amador Mitchell MD - Last Filed: 05/31/21 13:55> Reevaluation #2: Patient reports feeling much improved after additional DuoNeb therapies her repeat lung exam is with minimal wheezing. Patient was offered additional DuoNeb therapies however she feels she can manage her symptoms at home with
[2021-05-31] MEDS: IPRATROPIUM BR 0.02% INH SOLN 0.5 MG/2.5 ML VIAL INHALATION ×2 (06:47→07:52)
[2021-05-31] MEDS: ALBUTEROL SULFATE NEB 2.5 MG/0.5 ML INH 5 MG INHALATION ×2 (06:47→07:52)
[2021-05-31] MEDS: methylPREDNISolone SOD SUCC 125 MG VIAL IV PUSH (07:15)
== END 2021-05-31 08:46 | disposition home or self-care (01) ==
PROVIDERS: Emergency Provider Emergency Medicine
DX: J45.901 Unspecified asthma with (acute) exacerbation (principal)
CPT/HCPCS: 94640; 96374; 99284; J2930

== ENCOUNTER 2021-06-12 15:59 | Emergency (ER) | payer OTHER, SELFPAY ==
--- NOTE | ~2021-06-12 | XR_ITS ---
EXAMINATION: XR chest 1V portable 06/12/2021 17:13 INDICATION: Cough PROCEDURE: 2 view chest COMPARISON: Comparison to multiple prior studies sequentially, with oldest reviewed study dated 10/2018. FINDINGS: The lungs are clear. The cardiomediastinal silhouette is within normal limits. There are no pleural effusions. There is no pneumothorax suspected. IMPRESSION: 1: NO ACUTE CARDIOPULMONARY DISEASE. Reviewed, dictated and finalized at location A. [employer]
[2021-06-12 16:27] VITALS: BP 127/91; PULSE 99; RESP 19; TEMP 36.8; O2SAT 97
--- NOTE | 2021-06-12 17:07 | ED.ASTHMA ---
HPI - Asthma General Chief Complaint: Asthma Stated Complaint: asthma is bothering me Time Seen by Provider: 06/12/21 16:56 Source: RN notes reviewed History of Present Illness HPI Narrative: Patient presents to emergency department from home for asthma. Patient she has a history of asthma use inhaler at home she states normally around this time of year her asthma flares up and has been more flared for the past 2 weeks states she will wake up wheezing and having a cough this been nonproductive she has any fevers or chills chest pain abdominal pain nausea vomiting or any other symptoms states she has been using her inhaler but is been having to use it more frequently. Patient states she also ran out of her Symbicort inhaler approximately 1 month ago Related Data Home Medications Medication Instructions Recorded Confirmed albuterol sulfate INHALATION 10/04/20 montelukast 10 mg PO DAILY 10/04/20 budesonide-formoterol [Symbicort] INHALATION PRN 10/21/20 Allergies Allergy/AdvReac Type Severity Reaction Status Date / Time kiwi Allergy Intermediate Swelling Verified 06/12/21 17:42 shellfish derived Allergy Intermediate hives Verified 06/12/21 17:42 shrimp Allergy Intermediate Other Verified 06/12/21 17:42 Review of Systems Review of Systems: Gen.: Denies fevers or chills ENT: Denies congestion Respiratory: See HPI CV: Denies chest pain or palpitations GI: Denies abdominal pain nausea, emesis or diarrhea Musculoskeletal: Denies back pain or muscle pain Neuro: Denies numbness, tingling, weakness or focal weakness Skin: Denies rash Except as documented, all other systems reviewed and negative [facility] Past Medical History Medical History Asthma Surgical History Surgical History No history of previous surgery Social History Social History Smoking status: Never smoker Gender identity (if verbalized by the patient): Female Exam Narrative: APPEARANCE: No acute distress, nontoxic, resting in bed EYES: EOMI HEENT: Normocephalic, atraumatic, OMM RESPIRATORY: No respiratory distress wheezing in the bilateral upper lung quarles with decreased breath sounds in the bases CARDIOVASCULAR: Regular rate and rhythm without murmurs rubs or gallops. ABDOMINAL: Soft, nontender, nondistended, no rebound or guarding MUSCULOSKELETAl: Moves all extremities. No clubbing, cyanosis or edema. NEURO: Awake and alert. Following commands, speech normal, no focal deficits SKIN:: Warm, dry. No rashes lesions or abrasions PSYCHIATRIC: Normal affect/mood, Course Course Emergency Course: Patient given breathing treatments in ED repeat lung exam shows improved air movement with minimal wheeze upper lung quarles states he is feeling much better will discharge at this time with refill for Symbicort Discussed with patient results of workup and diagnosis. Discussed need for follow-up with primary care, proper use of medication, and reasons to return to the emergency department. Patient understands and agrees to current treatment plan Vital Signs Vital signs: Vital Signs Temperature 98.3 F 06/12/21 16:27 Pulse Rate 99 06/12/21 16:27 Respiratory Rate 19 06/12/21 16:27 Blood Pressure 127/91 H 06/12/21 16:27 Pulse Oximetry 97 06/12/21 16:27 Temperature 98.3 F 06/12/21 16:27 Pulse Rate 72 06/12/21 18:16 Respiratory Rate 18 06/12/21 18:16 Blood Pressure 127/91 H 06/12/21 16:27 Pulse Oximetry 97 06/12/21 16:27 MDM - Asthma Imaging Data Radiologist's impression: ITS Impressions Chest X-Ray 06/12/21 17:14 IMPRESSION: 1: NO ACUTE CARDIOPULMONARY DISEASE. Discharge Plan Discharge Clinical Impression: Asthma with acute exacerbation Patient Disposition: Home, Self-Care Condition: Stable Instructions: Antibiotic F
[2021-06-12] MEDS: ALBUTEROL SULFATE NEB 2.5 MG/0.5 ML INH 5 MG INHALATION (17:26)
[2021-06-12 17:27] VITALS: PULSE 76; RESP 20
[2021-06-12] MEDS: IPRATROPIUM BR 0.02% INH SOLN 0.5 MG/2.5 ML VIAL INHALATION (17:27)
[2021-06-12] MEDS: predniSONE 20 MG TABLET 60 MG PO (17:41)
[2021-06-12 18:10] VITALS: PULSE 75; RESP 18
[2021-06-12 18:16] VITALS: PULSE 72; RESP 18
== END 2021-06-12 19:00 | disposition home or self-care (01) ==
PROVIDERS: Emergency Provider Emergency Medicine
DX: J45.901 Unspecified asthma with (acute) exacerbation (principal)
CPT/HCPCS: 71045; 94640; 99284; J7512

== ENCOUNTER 2021-07-04 13:27 | Emergency (ER) | payer OTHER, SELFPAY ==
--- NOTE | ~2021-07-04 | CT_ITS ---
EXAMINATION: CT abdomen pelvis w con DATE: 07/04/2021 15:59 INDICATION: Abdominal pain TECHNIQUE: Computed tomography (CT) of the abdomen and pelvis was performed with 100 cc Omnipaque 350 intravenous contrast. The dose-length product was 1355.68 mGy-cm. Automated exposure control and ite rative reconstruction technique were employed. COMPARISON: None. FINDINGS: Lung bases are unremarkable. No significant pleural or pericardial effusion. Heart size nor mal. No significant vascular abnormality. The liver, spleen, pancreas, adrenal glands and kidneys are unremarkable. Gallbladder is contracted. No hydronephrosis. Nonobstructive bowel gas pattern. There is a 3 cm left adnexal cyst, likely ovarian. No significant f ree fluid in the pelvis. No evidence for hernia. No acute osseous abnormality. No acute osseous abnor mality. IMPRESSION: 1. Left adnexal cyst measuring 3 cm, likely ovarian. Reviewed, dictated and finalized at location A. [employer]
[2021-07-04 13:29] VITALS: BP 117/58; PULSE 87; RESP 18; TEMP 36; O2SAT 100
--- NOTE | 2021-07-04 13:59 | ED.ABDPAIN ---
HPI - Abdominal Pain General Chief Complaint: Abdominal Pain Stated Complaint: abd pain Time Seen by Provider: 07/04/21 13:59 Source: patient and family Mode of arrival: ambulatory Limitations: no limitations History of Present Illness HPI narrative: Patient presents with right abdominal pain started 3 days ago, constant, worse with certain movement and certain position, better laying down. Patient denies any fever, chills, nausea, vomiting, diarrhea, constipation, urinary symptoms, vaginal bleeding or discharge. Patient started a new job 5 weeks ago involving lifting, pushing and tilting. Patient is fully vaccinated for COVID-19. Patient denies any history of abdominal surgery. Related Data Home Medications Medication Instructions Recorded Confirmed montelukast 10 mg PO DAILY 10/04/20 Allergies Allergy/AdvReac Type Severity Reaction Status Date / Time kiwi Allergy Intermediate Swelling Verified 07/04/21 13:59 shellfish derived Allergy Intermediate hives Verified 07/04/21 13:59 shrimp Allergy Intermediate Other Verified 07/04/21 13:59 Review of Systems Review of Systems: CONSTITUTIONAL: Denies fever, chills, or sweats. EYES: Denies visual changes, redness, or discharge. ENT: Denies rhinorrhea, congestion, sore throat, or otalgia. CARDIOVASCULAR: Denies chest pain, palpitations, or edema. RESPIRATORY: Denies cough or dyspnea. GASTROINTESTINAL: Denies abdominal pain, nausea, vomiting, or diarrhea. GENITOURINARY: Denies dysuria or hematuria. SKIN: Denies rash or itching. MUSCULOSKELETAL: Denies back pain, joint pain, or myalgia. NEUROLOGIC: Denies headache, numbness, or weakness. PSYCHIATRIC: Denies anxiety or depression. PMFSH Past Medical History Medical History Asthma Surgical History Surgical History No history of previous surgery Social History Social History Smoking status: Never smoker Gender identity (if verbalized by the patient): Female Exam Narrative: General appearance: Well-developed, well-nourished Skin: Normal color Head: Normocephalic, nontraumatic Eyes: Clear conjunctiva ENT: Oropharynx normal, ears normal, nose normal Neck: Supple, nontender Chest and respiratory: Airway patent, no respiratory distress, no accessory muscle use Heart: Regular rate/rhythm Abdomen: Soft, nontender, no organomegaly, quiet bowel sounds Vascular: Normal peripheral pulses, normal capillary refill. 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 Estevez. hi likely related to her new Physical job. Work-up did not show anything significant. CAT scan of the abdomen showed 3 cm left ovarian cyst, patient complaining of right mid abdominal pain on arrival to the emergency room. Abdominal examination showed no acute abnormalities. Differential Diagnosis Differential diagnosis: Likely abdominal pain, acute appendicitis, constipation and divertic
[2021-07-04 14:28] LABS: Basophils Absolute Auto 0.1 K/mm3 (0.0-0.1); Basophils Percent Auto 0.4 % (0.2-1.2); Eosinophils Absolute Auto 0.1 K/mm3 (0-0.3); Eosinophils Percent Auto 1.1 % (0-4.4); Hematocrit 33.7 % (37.0-47.0); Hemoglobin 10.4 g/dL (12.0-15.0); Immature Granulocyte Absolute 0.03 K/mm3 (0.00-0.031); Immature Granulocyte Percent A 0.3 % (0-0.5); Lymphocytes Percent Auto 24.4 % (18.3-44.2); Mean Corpuscular HGB Conc 30.9 g/dl (32-36); Mean Corpuscular Hemoglobin 26.9 pg (26-34); Mean Corpuscular Volume 87.1 fl (80-100); Monocytes Absolute Auto 0.8 K/mm3 (0.1-0.6); Neutrophils Percent Auto 66.8 % (45.5-73.1); Platelet Count Result 305 k/mm3 (150-375); Red Blood Count 3.87 M/mm3 (4.2-5.4); Red Cell Distribution Width 15.2 % (11.5-14.5); White Blood Count 11.9 K/mm3 (4.5-10.0)
[2021-07-04 14:40] LABS: Alanine Aminotransferase 15 U/L (4-35); Albumin Level 4.3 g/dL (3.5-5.1); Alkaline Phosphatase 58 U/L (38-126); Anion Gap 8 mmol/L (8-16); Aspartate Amino Transferase 22 U/L (14-36); Bilirubin,Total 0.2 mg/dL (0.2-1.3); Blood Urea Nitrogen 17 mg/dL (7-17); Calcium 9.5 mg/dL (8.4-10.2); Carbon Dioxide 27 mmol/L (22-30); Chloride 103 mmol/L (98-107); Estimated CRCL calculation 97 ml/min; Estimated Glomerular Filt Rate > 60; Glucose 73 mg/dL (65-110); Lipase 91 U/L (23-300); Potassium 3.7 mmol/L (3.4-5.0); Sodium 138 mmol/L (137-145)
[2021-07-04] MEDS: SODIUM CHLORIDE 0.9% IV 1,000 ML 999 ML IV CONT (15:29)
[2021-07-04] MEDS: KETOROLAC 30 MG/ML VIAL (*BKC) IV PUSH (15:30)
[2021-07-04 15:59] LABS: Add Urine Microscopic? YES; Appearance Urine Clear (Clear); Bacteria Urine Trace /hpf; Bilirubin Urine Negative (Negative); Blood Urine Negative (Negative); Color Urine Yellow (Yellow); Glucose Urine UA Negative (Negative); Ketones Urine Negative (Negative); Leukocyte Esterase Ur Trace LEU/UL (Negative); Mucus Urine Rare /lpf; Nitrate Urine Negative (Negative); Protein Urine Negative (Negative); RBC Urine 0-2 /hpf (0-2); Specific Grav Ur 1.017 (1.001-1.035); Squamous Epithelial Cell Urine Rare /hpf (Few); WBC Urine 16-20 /hpf
== END 2021-07-04 18:20 | disposition home or self-care (01) ==
PROVIDERS: Emergency Provider Emergency Medicine
DX: R10.10 Upper abdominal pain, unspecified (principal)
CPT/HCPCS: 36415; 74177; 80053; 81001; 81025; 83690; 85025; 87077; 87086; 87088; 87186; 96361; 96374; 99284; J1885; J7030; Q9967

== ENCOUNTER 2022-03-12 16:26 | Emergency (ER) | payer OTHER, SELFPAY ==
--- NOTE | ~2022-03-12 | XR_ITS ---
EXAMINATION: XR chest 2V DATE: 03/12/2022 17:18 INDICATION: Asthma with shortness of breath TECHNIQUE: PA and lateral views of the chest were obtained. COMPARISON: Chest radiograph dated 06/12/2021 FINDINGS: The lungs remain clear with no focal airspace opacities, pulmonary edema, pleural effusion or pneumot horax. The cardiomediastinal silhouette is normal. Visualized bones and soft tissues are unremarkable . IMPRESSION: 1. No acute cardiopulmonary disease. Reviewed, dictated and finalized at location A.
[2022-03-12 16:29] VITALS: BP 148/73; PULSE 95; RESP 20; TEMP 36.4; O2SAT 98
[2022-03-12] MEDS: ALBUTEROL SULFATE NEB 2.5 MG/3 ML INH 5 MG INHALATION ×2 (17:46→19:36)
[2022-03-12 17:49] VITALS: PULSE 82; RESP 20
--- NOTE | 2022-03-12 17:58 | ED.SOB ---
HPI - SOB/Dyspnea General Chief Complaint: Shortness of Breath/Dyspnea <HOLLEY Rico Last Filed: 03/13/22 04:15> Stated Complaint: SOB <HOLLEY Rico Last Filed: 03/13/22 04:15> Time Seen by Provider: 03/12/22 17:03 <HOLLEY Rico Last Filed: 03/13/22 04:15> Source: patient <HOLLEY Rico Last Filed: 03/13/22 04:15> Mode of arrival: ambulatory <HOLLEY Rico Last Filed: 03/13/22 04:15> Limitations: no limitations <HOLLEY Rico Last Filed: 03/13/22 04:15> History of Present Illness HPI Narrative: Patient is a 31-year-old female with a past medical history of asthma, who presents the ED with report of increased shortness of breath. Patient reports over the last few days she has had increasing shortness of breath, worse with exertion. She also reports increased cough, wheezing. She typically takes Symbicort daily but has been out of this for the last week or so. She called her primary care doctor yesterday and was given a refill for the medication, but her insurance does not improve until 03/19. She has been using her albuterol rescue inhaler frequently at home without relief. She denies any recent sick contacts, fever, congestion, runny nose, sore throat, chest pain, abdominal pain, nausea, vomiting. <HOLLEY Rico Last Filed: 03/13/22 04:15> Related Data Home Medications: Home Medications Medication Instructions Recorded Confirmed montelukast 10 mg tablet 10 mg PO DAILY 10/04/20 <HOLLEY Rico Last Filed: 03/13/22 04:15> Allergies/Adverse Reactions: Allergies Allergy/AdvReac Type Severity Reaction Status Date / Time kiwi Allergy Intermediate Swelling Verified 07/04/21 13:59 shellfish derived Allergy Intermediate hives Verified 07/04/21 13:59 shrimp Allergy Intermediate Other Verified 07/04/21 13:59 <Yadi Connolly PA-C - Last Filed: 03/13/22 04:15> Review of Systems Review of Systems: CONSTITUTIONAL: Denies fever, chills, or sweats. ENT: Denies rhinorrhea, congestion, sore throat. CARDIOVASCULAR: Denies chest pain. RESPIRATORY: Reports cough and dyspnea, QUINTERO. GASTROINTESTINAL: Denies abdominal pain, nausea, vomiting. <Yadi Connolly PA-C - Last Filed: 03/13/22 04:15> All systems reviewed & are unremarkable except as noted in HPI and below <Yadi Connolly PA-C - Last Filed: 03/13/22 04:15> [facility] Past Medical History Medical History: Medical History Asthma <Yadi Connolly PA-C - Last Filed: 03/13/22 04:15> Surgical History Surgical History: Surgical History No history of previous surgery <Yadi Connolly PA-C - Last Filed: 03/13/22 04:15> Social History Social History: Social History Smoking status: Never smoker Gender identity (if verbalized by the patient): Female <Yadi Connolly PA-C - Last Filed: 03/13/22 04:15> Exam Narrative: GENERAL: Well appearing, obese, non-toxic, in no acute distress. HEAD: Normocephalic, atraumatic. NECK: Supple. No adenopathy, no masses. RESPIRATORY: Airway patent, respirations nonlabored. Diffuse rhonchi throughout lung quarles bilaterally, occasional inspiratory wheezing. No respiratory distress. CARDIOVASCULAR: Regular rate and rhythm without murmurs, rubs, or gallops. Peripheral pulses 2+ and equal bilaterally. ABDOMINAL: Soft, nontender, nondistended, no hepatosplenomegaly. Normoactive BS. MUSCULOSKELETAL: Moves all extremities. Strength/ROM intact without gross deformities. SKIN: Warm, dry, normal color. No rashes. NEURO: A&O X3. Speech clear. Cranial nerves II-XII grossly intact. Steady gait. No ataxic movements. PSYCHIATRIC: Appropriate mood and affect. Nor
[2022-03-12 18:07] VITALS: PULSE 96; RESP 20
[2022-03-12] MEDS: methylPREDNISolone SOD SUCC 125 MG VIAL IM (18:13)
[2022-03-12 19:37] VITALS: PULSE 78; RESP 18
[2022-03-12 20:05] VITALS: PULSE 78; RESP 18
[2022-03-12 20:07] VITALS: BP 127/66; PULSE 93; RESP 20; TEMP 36.8; O2SAT 97
== END 2022-03-12 20:54 | disposition home or self-care (01) ==
PROVIDERS: Emergency Provider Emergency Medicine
DX: J45.901 Unspecified asthma with (acute) exacerbation (principal)
CPT/HCPCS: 71046; 94640; 96372; 99284; J2930

== ENCOUNTER 2022-07-24 13:08 | Emergency (ER) | payer OTHER, SELFPAY ==
[2022-07-24 13:15] VITALS: BP 160/86; PULSE 104; RESP 16; TEMP 37; O2SAT 100
--- NOTE | 2022-07-24 15:51 | ED.SKABFB ---
HPI - Skin/Abscess/Foreign Bdy General Chief complaint: Skin/Abscess/Foreign Body Stated complaint: knot under right arm Time Seen by Provider: 07/24/22 14:22 History of Present Illness HPI narrative: Patient is a 31-year-old female presenting with pain under her right armpit. Patient states that she got her COVID shot 2 days ago in her right upper arm. States that she had some right upper arm soreness but this is improved. States that starting last night she developed pain in her right axilla. States that there is an area that feels swollen. Denies any drainage or redness. Denies prior abscesses. Denies fevers or chills. She denies further symptoms or complaints. Related Data Home Medications Medication Instructions Recorded Confirmed montelukast 10 mg tablet 10 mg PO DAILY 10/04/20 Allergies Allergy/AdvReac Type Severity Reaction Status Date / Time kiwi Allergy Intermediate Swelling Verified 07/24/22 13:17 shellfish derived Allergy Intermediate hives Verified 07/24/22 13:17 shrimp Allergy Intermediate Other Verified 07/24/22 13:17 Review of Systems Review of Systems: All systems reviewed & are unremarkable except as noted in HPI and below PMFSH Past Medical History Medical History Asthma Surgical History Surgical History No history of previous surgery Social History Social History Smoking status: Never smoker Gender identity (if verbalized by the patient): Female Exam Narrative: GENERAL: Well-appearing, well-nourished, and in no acute distress. HEAD: Normocephalic, atraumatic. EYES: PERRLA and EOMI. ENT: Nares clear, no rhinorrhea or epistaxis. Mucous membranes moist. NECK: Supple. CHEST: Clear to auscultation. No respiratory distress. HEART: Regular rate and rhythm. No murmur heard. Normal peripheral pulses. ABDOMEN: Soft, nontender, nondistended, normal active bowel sounds. EXTREMITIES: Area of tenderness with mild induration right axilla, no fluctuance or drainage, no overlying erythema SKIN: Warm, dry, no rash. NEURO: No focal deficits. Alert and oriented x3. PSYCH: Normal mood and affect. Course Vital Signs Vital signs: Vital Signs Temperature 98.6 F 07/24/22 13:15 Pulse Rate 104 H 07/24/22 13:15 Respiratory Rate 16 07/24/22 13:15 Blood Pressure 160/86 H 07/24/22 13:15 Pulse Oximetry 100 07/24/22 13:15 Temperature 98.6 F 07/24/22 16:39 Pulse Rate 104 H 07/24/22 13:15 Respiratory Rate 16 07/24/22 13:15 Blood Pressure 160/86 H 07/24/22 13:15 Pulse Oximetry 100 07/24/22 13:15 MDM - Skin/Abscess/Foreign Bdy MDM Narrative Medical decision making narrative: Patient is a 31-year-old female presenting with right axillary pain and swelling. Hypertensive, otherwise vitals are within normal limits. Exam is remarkable for the above. Concerned that she is developing a cellulitis or abscess in her right axilla. There is nothing amenable to drainage at this time. I will cover her with Bactrim and advised wet compresses if drainage develops. Advised PCP follow-up. Appropriate return precautions given. Patient discharged in stable condition. Critical Care Time Critical Care Time Critical Care Time: No Discharge Plan Discharge Clinical Impression: Cellulitis of axillary region Patient Disposition: Home, Self-Care Condition: Stable Instructions: Antibiotic Form, Cellulitis (ED) Additional Instructions: Please take the antibiotics as prescribed. Please use Tylenol and ibuprofen for pain control. Please follow-up closely with your primary care provider. If your symptoms worsen, you develop fevers or vomiting, or other concerning symptoms arise, please return to the ER. Prescriptions: New sulfamethoxazole-trimethoprim [Bactrim DS] 800-160 mg tablet 1 tablet PO Q12H
[2022-07-24] MEDS: IBUPROFEN 400 MG TABLET 800 MG PO (16:09)
[2022-07-24] MEDS: SULFAMETHOXAZOLE/TRIMETHOPRIM 800/160 MG DS TABLET 1 TAB PO (16:09)
[2022-07-24 16:39] VITALS: TEMP 37
== END 2022-07-24 16:15 | disposition home or self-care (01) ==
PROVIDERS: Emergency Provider Emergency Medicine
DX: L03.111 Cellulitis of right axilla (principal); J45.909 Unspecified asthma, uncomplicated
CPT/HCPCS: 99283; A9270

== ENCOUNTER 2022-11-14 16:19 | Emergency (ER) | payer OTHER, SELFPAY ==
--- NOTE | ~2022-11-14 | CT_ITS ---
EXAMINATION: CTA chest PE protocol DATE: 11/14/2022 18:57 INDICATION: Pleuritic chest pain TECHNIQUE: Computed tomography angiography (CTA) of the chest was performed with 200 mL Omnipaque-350 intravenous contrast timed to evaluate the pulmonary arteries. Coronal maximum intensity projection 3D-reconstructions were created by the technologist. The dose-length product (DLP) was 2030.79 mGy-cm . Automated exposure control and iterative reconstruction technique were employed. COMPARISON: 07/18/2020 FINDINGS: The pulmonary arteries are moderately well-opacified. No pulmonary embolism is identified. The lungs are free of acute opacities. No pleural effusion or pneumothorax. No pathologically enlarge d thoracic lymph nodes are identified. The heart size is normal. Again noted is triangular soft tissu e density in the anterior mediastinum, likely residual thymus. IMPRESSION: 1. No pulmonary embolism or acute cardiopulmonary abnormality. Reviewed, dictated and finalized at location F.
--- NOTE | ~2022-11-14 | XR_ITS ---
EXAMINATION: XR hand RT min 3V INDICATION: Right hand pain, initial encounter TECHNIQUE: Three views of the right hand are obtained. COMPARISON: None available FINDINGS: There is an acute, traumatic, closed, oblique fracture at the medial base of the second mid dle phalanx which extends to the proximal interphalangeal joint. Soft tissue swelling surrounds the f racture. No additional fracture is identified. IMPRESSION: 1. Intra-articular fracture at the medial base of the fourth middle phalanx. Reviewed, dictated and finalized at location F.
--- NOTE | ~2022-11-14 | XR_ITS ---
EXAMINATION: XR chest 2V DATE: 11/14/2022 17:48 INDICATION: Left-sided chest pain TECHNIQUE: PA and lateral views of the chest are obtained. COMPARISON: 03/12/2022 FINDINGS: The lungs are free of acute opacities. No pleural effusion or pneumothorax. The cardiomedia stinal silhouette is normal. The visualized bones and soft tissues are unremarkable. IMPRESSION: 1. No acute cardiopulmonary abnormality. Reviewed, dictated and finalized at location F.
[2022-11-14 16:44] VITALS: BP 148/72; PULSE 87; RESP 16; TEMP 36.8; O2SAT 100
--- NOTE | 2022-11-14 17:11 | ECG_ITS ---
Measurements Intervals [place] Rate: 91 P: 16 TN: 144 QRS: 13 QRSD: 96 T: 21 QT: 350 QTc: 431 Interpretive Statements SINUS RHYTHM INCOMPLETE RIGHT BUNDLE BRANCH BLOCK BORDERLINE ECG COMPARED TO ECG 07/18/2020 16:40:48 NO SIGNIFICANT CHANGES Electronically Signed On 11-15-2022 6:32:22 CDT by Moises Rapp D.O.
[2022-11-14] MEDS: KETOROLAC 30 MG/ML VIAL (*BKC) IM (17:18)
--- NOTE | 2022-11-14 17:29 | ED.EXTPRO ---
HPI - Extremity Problem General Chief complaint: Extremity Problem,Nontraumatic Stated complaint: left shoulder pain Time Seen by Provider: 11/14/22 16:53 History of Present Illness HPI Narrative: Patient is a 31-year-old female with a history of asthma here for evaluation of left-sided chest pain x3 days. Patient states the pain is worse with movement of her shoulder and with deep breaths. She has not attempted any medicine for her pain. She does have a history of asthma but does not feel short of breath, has had no cough, fevers, upper respiratory infectious symptoms. She denies any obvious injury to her shoulder. No control use, recent surgeries or long trips or travel. She also states that she jammed her right fourth finger several days ago and has had pain ever since. No numbness, tingling, difficulty moving the finger. Has not taken any medicine for the pain. Related Data Home Medications Medication Instructions Recorded Confirmed montelukast 10 mg tablet 10 mg PO DAILY 10/04/20 Allergies Allergy/AdvReac Type Severity Reaction Status Date / Time kiwi Allergy Intermediate Swelling Verified 07/24/22 13:17 shellfish derived Allergy Intermediate hives Verified 07/24/22 13:17 shrimp Allergy Intermediate Other Verified 07/24/22 13:17 Review of Systems Review of Systems: Gen: Denies fevers or chills Eyes: Denies eye pain or visual change ENT: Denies congestion Respiratory: Denies shortness of breath or cough CV: Reports chest pain GI: Denies abdominal pain nausea, emesis or diarrhea denies burning, urgency, frequency or hematuria Musculoskeletal: Reports shoulder pain. Neuro: Denies numbness, tingling, weakness or focal weakness Skin: Denies rash Except as documented, all other systems reviewed and negative PMFSH Past Medical History Medical History Asthma Surgical History Surgical History No history of previous surgery Social History Social History Smoking status: Never smoker Gender identity (if verbalized by the patient): Female Exam Narrative: APPEARANCE: Well appearing, no pain in distress, well-nourished. Head: Normocephalic and atraumatic. EYES: PERRLA/EOMI, conjunctivae clear NOSE: No nasal drainage EARS: External ear normal in appearance THROAT: Oropharynx is clear. Mucous membranes are moist. NECK: Supple. No adenopathy, no masses. RESPIRATORY: Airway patent, respirations nonlabored. Clear to auscultation bilaterally, no rales, rhonchi, wheezing. CARDIOVASCULAR: Regular rate and rhythm without murmurs, rubs, or gallops. ABDOMINAL: Normoactive bowel sounds. Soft, nontender, nondistended. No rebound tenderness or guarding. MUSCULOSKELETAL: There is some tenderness to palpation along the left anterior chest wall. Extremities are warm and well-perfused. Moves all extremities well. No edema. NEURO: Normal speech. No focal neurologic deficits. SKIN: Skin is warm and dry. No rashes. PSYCHIATRIC: Normal affect/mood.. Course Vital Signs Vital signs: Vital Signs Temperature 98.2 F 11/14/22 16:44 Pulse Rate 87 11/14/22 16:44 Respiratory Rate 16 11/14/22 16:44 Blood Pressure 148/72 H 11/14/22 16:44 Pulse Oximetry 100 11/14/22 16:44 Oxygen Delivery Room Air 11/14/22 16:44 Temperature 98.2 F 11/14/22 16:44 Pulse Rate 88 11/14/22 18:28 Respiratory Rate 16 11/14/22 18:28 Blood Pressure 139/70 11/14/22 18:28 Pulse Oximetry 99 11/14/22 18:28 Oxygen Delivery Room Air 11/14/22 16:44 MDM - Extremity (Nontraumatic) MDM Narrative Medical decision making narrative: 31-year-old female here for evaluation of atraumatic chest pain near her left shoulder for the past several days and right fourth finger pain after she jammed it 3 days ago. Heart lungs are elva
[2022-11-14 17:31] VITALS: BP 133/84; PULSE 82; RESP 16; O2SAT 98
[2022-11-14 17:39] LABS: Basophils Absolute Auto 0.1 K/mm3 (0.0-0.1); Basophils Percent Auto 0.6 % (0.2-1.2); Eosinophils Absolute Auto 0.2 K/mm3 (0-0.3); Eosinophils Percent Auto 1.9 % (0-4.4); Hematocrit 35.4 % (37.0-47.0); Hemoglobin 10.9 g/dL (12.0-15.0); Immature Granulocyte Absolute 0.02 K/mm3 (0.00-0.031); Immature Granulocyte Percent A 0.2 % (0-0.5); Lymphocytes Absolute Auto 2.64 K/mm3 (0.9-3.2); Lymphocytes Percent Auto 32.8 % (18.3-44.2); Mean Corpuscular HGB Conc 30.8 g/dl (32-36); Mean Corpuscular Hemoglobin 27.3 pg (26-34); Mean Corpuscular Volume 88.5 fl (80-100); Monocytes Absolute Auto 0.6 K/mm3 (0.1-0.6); Monocytes Percent Auto 7.3 % (2.6-8.5); Neutrophils Absolute Auto 4.6 K/mm3 (1.3-6.7); Neutrophils Percent Auto 57.2 % (45.5-73.1); Platelet Count Result 312 k/mm3 (150-375); Red Cell Distribution Width 14.3 % (11.5-14.5)
[2022-11-14 17:45] LABS: Alanine Aminotransferase 18 U/L (6-35); Albumin Level 4.1 g/dL (3.5-5.1); Alkaline Phosphatase 57 U/L (38-126); Anion Gap 5 mmol/L (8-16); Aspartate Amino Transferase 24 U/L (14-36); Bilirubin,Total 0.4 mg/dL (0.2-1.3); Blood Urea Nitrogen 13 mg/dL (7-17); Calcium 9.4 mg/dL (8.4-10.2); Carbon Dioxide 29 mmol/L (22-30); Chloride 103 mmol/L (98-107); Estimated CRCL calculation 125 ml/min; Estimated Glomerular Filt Rate > 60; Glucose 82 mg/dL (65-110); Potassium 3.6 mmol/L (3.4-5.0); Sodium 137 mmol/L (137-145)
[2022-11-14 17:55] LABS: D Dimer 0.89 ug/mL (<0.48)
[2022-11-14 17:56] LABS: Troponin I < 0.012 ng/mL (0.000-0.034)
[2022-11-14 18:27] VITALS: O2SAT 100
[2022-11-14 18:28] VITALS: BP 139/70; PULSE 88; RESP 16; O2SAT 99
[2022-11-14 20:04] VITALS: BP 104/61; PULSE 88; RESP 18; O2SAT 97
== END 2022-11-14 20:04 | disposition home or self-care (01) ==
PROVIDERS: Emergency Provider Physician Assistant
DX: S62.624A Displaced fracture of middle phalanx of right ring finger, initial encounter for closed fracture (principal); M25.512 Pain in left shoulder; J45.909 Unspecified asthma, uncomplicated; X58.XXXA Exposure to other specified factors, initial encounter
CPT/HCPCS: 29130; 36415; 71046; 71275; 73130; 80053; 81025; 84484; 85025; 85380; 93005; 96372; 99284; J1885; Q9967

== ENCOUNTER 2023-03-09 17:16 | Emergency (ER) | payer OTHER, SELFPAY ==
--- NOTE | ~2023-03-09 | XR_ITS ---
EXAMINATION: XR chest 2V DATE: 03/09/2023 19:29 INDICATION: Cough and wheezing TECHNIQUE: PA and lateral views of the chest were obtained. COMPARISON: Chest radiograph and CT dated 11/14/2022 FINDINGS: The lungs remain clear with no focal airspace opacities, pulmonary edema, pleural effusion or pneumot horax. The cardiomediastinal silhouette is normal. Visualized bones and soft tissues are unremarkable . IMPRESSION: 1. Normal chest radiograph. Reviewed, dictated and finalized at location A. IMPRESSION: 1. Normal chest radiograph.
[2023-03-09 17:31] VITALS: BP 143/77; PULSE 101; RESP 18; TEMP 36.6; O2SAT 99
[2023-03-09 18:11] VITALS: BP 146/98; PULSE 91; RESP 19; TEMP 36.9; O2SAT 100
[2023-03-09 18:12] VITALS: O2SAT 100
--- NOTE | 2023-03-09 18:50 | ED.ASTHMA ---
HPI - Asthma General Chief Complaint: Asthma Stated Complaint: asthma Time Seen by Provider: 03/09/23 18:16 Source: patient Mode of arrival: ambulatory Limitations: no limitations History of Present Illness HPI Narrative: This is a 32 year old female that presents to the ER for wheezing. Ongoing over the last 4 days. Associated with a productive cough of clear sputum. She has been taking her inhalers as prescribed without relief. Denies fevers. Related Data Home Medications Medication Instructions Recorded Confirmed montelukast 10 mg tablet 10 mg PO DAILY 10/04/20 Allergies Allergy/AdvReac Type Severity Reaction Status Date / Time kiwi Allergy Intermediate Swelling Verified 03/09/23 17:34 shellfish derived Allergy Intermediate hives Verified 03/09/23 17:34 shrimp Allergy Intermediate Other Verified 03/09/23 17:34 Review of Systems Review of Systems: CONSTITUTIONAL: Denies fever ENT: Reports sore throat. Denies rhinorrhea, congestion RESPIRATORY: Reports cough and dyspnea. All systems reviewed & are unremarkable except as noted in HPI and below PMFSH Past Medical History Medical History Asthma Surgical History Surgical History No history of previous surgery Social History Social History Smoking status: Never smoker Gender identity (if verbalized by the patient): Female Exam Narrative: GENERAL: Well-appearing, well-nourished, and in no acute distress. HEAD: Normocephalic, atraumatic. EYES: EOMI. ENT: Nares clear, no rhinorrhea or epistaxis. Mucous membranes moist. Oropharynx without tonsillar hypertrophy exudate or other lesions. Bilateral TMs pearly castellano non-bulging NECK: Supple. No adenopathy or masses. CHEST: Mild expiratory wheezing. No respiratory distress. No rales or rhonchi HEART: Regular rate and rhythm. No murmur heard. Normal peripheral pulses. EXTREMITIES: Normal range of motion. No edema. SKIN: Warm, dry, no rash. NEURO: No focal deficits. Alert and oriented x3. PSYCH: Normal mood and affect Course Course Emergency Course: Patient was updated on workup and agrees with plan of care. Lungs are now clear after nebulizer treatment Vital Signs Vital signs: Vital Signs Temperature 97.9 F 03/09/23 17:31 Pulse Rate 101 H 03/09/23 17:31 Respiratory Rate 18 03/09/23 17:31 Blood Pressure 143/77 H 03/09/23 17:31 Pulse Oximetry 99 03/09/23 17:31 Oxygen Delivery Room Air 03/09/23 17:31 Temperature 98.5 F 03/09/23 18:11 Pulse Rate 79 03/09/23 19:12 Respiratory Rate 18 03/09/23 19:12 Blood Pressure 146/98 H 03/09/23 18:11 Pulse Oximetry 100 03/09/23 18:12 Oxygen Delivery Room Air 03/09/23 18:12 MDM - Asthma MDM Narrative Medical decision making narrative: Patient presents to the emergency department for wheezing ongoing over the last 4 days. Also reports a cough. History of asthma. She is afebrile and nontoxic appearing. Oxygen saturation is normal on room air. Chest x-ray without acute cardiopulmonary abnormality. Initially she has some mild expiratory wheezing. Given nebulizer treatment with relief. Will be continued on oral steroid and is to follow-up with her primary provider. She was given warnings to return to the ER Differential Diagnosis Differential diagnosis: Likely Acute exacerbation, Acute asthmatic bronchitis and Pneumonia Imaging Data Radiologist's impression: ITS Impressions Chest X-Ray 03/09/23 19:33 IMPRESSION: 1. Normal chest radiograph. Critical Care Time Critical Care Time Critical Care Time: No Discharge Plan Discharge Clinical Impression: Asthma with exacerbation Qualifiers: Asthma severity: unspecified severity Asthma persistence: persistent Qualified Code(s): J45.901 - Unspecified asthma with (a
[2023-03-09 18:55] VITALS: PULSE 84; RESP 18
[2023-03-09] MEDS: IPRATROPIUM BR 0.02% INH SOLN 0.5 MG/2.5 ML VIAL INHALATION (18:55)
[2023-03-09] MEDS: ALBUTEROL SULFATE NEB 2.5 MG/3 ML INH INHALATION (18:55)
[2023-03-09] MEDS: predniSONE 20 MG TABLET 40 MG PO (19:01)
[2023-03-09 19:12] VITALS: PULSE 79; RESP 18
== END 2023-03-09 20:28 | disposition home or self-care (01) ==
PROVIDERS: Emergency Provider Physician Assistant
DX: J45.901 Unspecified asthma with (acute) exacerbation (principal)
CPT/HCPCS: 71046; 94640; 99283; J7512

== ENCOUNTER 2023-04-12 16:54 | Emergency (ER) | payer OTHER, SELFPAY ==
--- NOTE | ~2023-04-12 | XR_ITS ---
EXAMINATION: XR chest 2V Exam Date/Time: 04/12/2023 20:36 CDT HISTORY: sob, productive cough, asthma Comparison: 03/09/2023. RESULT: Lines, tubes, and devices: None. Lungs and pleura: Clear. Cardiomediastinal silhouette: Stable. Other: No acute osseous or upper abdominal finding. IMPRESSION: No acute cardiopulmonary process. Reviewed, dictated and finalized at location K.
[2023-04-12 17:35] VITALS: BP 147/87; PULSE 96; RESP 20; TEMP 36.6; O2SAT 98
[2023-04-12 20:15] VITALS: PULSE 88; RESP 20; O2SAT 98
--- NOTE | 2023-04-12 20:19 | ED.SOB ---
HPI - SOB/Dyspnea General Chief Complaint: Shortness of Breath/Dyspnea Stated Complaint: asthma Time Seen by Provider: 04/12/23 19:21 Source: patient and old records reviewed Mode of arrival: ambulatory Limitations: no limitations History of Present Illness HPI Narrative: Patient is a 32-year-old female with past medical history of asthma, who presents to the ED with report of shortness of breath. Patient reports she was seen here around 1 month ago for an asthma exacerbation. She states she is never really felt better since then. She reports persistent shortness of breath, persistent cough, which has now become productive. She has been using her inhalers at home without significant relief. She denies chest pain, pleuritic pain, lower extremity pain or swelling, fevers, nausea, vomiting. Denies sick contacts. Denies congestion, sore throat. Patient has not followed up with her primary care doctor since her last ED visit. Related Data Home Medications Medication Instructions Recorded Confirmed montelukast 10 mg tablet 10 mg PO DAILY 10/04/20 Allergies Allergy/AdvReac Type Severity Reaction Status Date / Time kiwi Allergy Intermediate Swelling Verified 04/12/23 19:16 shellfish derived Allergy Intermediate hives Verified 04/12/23 19:16 shrimp Allergy Intermediate Other Verified 04/12/23 19:16 Review of Systems Review of Systems: CONSTITUTIONAL: Denies fever, chills, or sweats. ENT: Denies rhinorrhea, congestion, sore throat. CARDIOVASCULAR: Denies chest pain, palpitations, or edema. RESPIRATORY: See HPI. GASTROINTESTINAL: Denies abdominal pain, nausea, vomiting, or diarrhea. All systems reviewed & are unremarkable except as noted in HPI and below PMFSH Past Medical History Medical History Asthma Surgical History Surgical History No history of previous surgery Social History Social History Smoking status: Never smoker Gender identity (if verbalized by the patient): Female Exam Narrative: GENERAL: Well appearing, morbidly obese with BMI of 40.4, non-toxic, in no acute distress. HEAD: Normocephalic, atraumatic. NECK: Supple. No adenopathy, no masses. RESPIRATORY: Airway patent, respirations nonlabored. No significant focal lung sounds. Scattered mild expiratory wheezing. No distress. CARDIOVASCULAR: Regular rate and rhythm without murmurs, rubs, or gallops. Radial pulses 2+ and equal bilaterally. ABDOMINAL: Soft, nontender, nondistended, no hepatosplenomegaly. Normoactive BS. MUSCULOSKELETAL: Moves all extremities. Strength/ROM intact without gross deformities. SKIN: Warm, dry, normal color. No rashes. NEURO: A&O X3. Speech clear. Cranial nerves II-XII grossly intact. Steady gait. No ataxic movements. PSYCHIATRIC: Appropriate mood and affect. Normal interaction. Course Vital Signs Vital signs: Vital Signs Temperature 97.9 F 04/12/23 17:35 Pulse Rate 96 04/12/23 17:35 Respiratory Rate 20 04/12/23 17:35 Blood Pressure 147/87 H 04/12/23 17:35 Pulse Oximetry 98 04/12/23 17:35 Oxygen Delivery Room Air 04/12/23 17:35 Temperature 97.9 F 04/12/23 17:35 Pulse Rate 84 04/12/23 22:52 Respiratory Rate 18 04/12/23 22:52 Blood Pressure 135/81 04/12/23 22:52 Pulse Oximetry 98 04/12/23 22:52 Oxygen Delivery Room Air 04/12/23 17:35 MDM - SOB/Dyspnea MDM Narrative Medical decision making narrative: Patient presented to ED with concern for asthma exacerbation, persistent shortness of breath and cough. History of asthma, on Symbicort and albuterol. Vital stable upon arrival. Patient afebrile. In no acute distress. Scattered expiratory wheezing heard on exam. Nebulizer treatment ordered. Patient does not have a nebulizer machine at home, though I do feel she would benefit
[2023-04-12] MEDS: LEVALBUTEROL NEB 1.25 MG/3 ML 2.5 MG INHALATION (20:39)
[2023-04-12] MEDS: IPRATROPIUM BR 0.02% INH SOLN 0.5 MG/2.5 ML VIAL 1.5 MG INHALATION (20:39)
[2023-04-12 20:46] LABS: Basophils Absolute Auto 0.1 K/mm3 (0.0-0.1); Basophils Percent Auto 0.8 % (0.2-1.2); Eosinophils Absolute Auto 0.6 K/mm3 (0-0.3); Eosinophils Percent Auto 6.4 % (0-4.4); Hematocrit 35.3 % (37.0-47.0); Hemoglobin 10.7 g/dL (12.0-15.0); Immature Granulocyte Absolute 0.01 K/mm3 (0.00-0.031); Immature Granulocyte Percent A 0.1 % (0-0.5); Lymphocytes Absolute Auto 3.74 K/mm3 (0.9-3.2); Lymphocytes Percent Auto 40.1 % (18.3-44.2); Mean Corpuscular HGB Conc 30.3 g/dl (32-36); Mean Corpuscular Hemoglobin 27.2 pg (26-34); Mean Corpuscular Volume 89.8 fl (80-100); Mean Platelet Volume 10.3 fl (7.4-10.4); Monocytes Absolute Auto 0.7 K/mm3 (0.1-0.6); Monocytes Percent Auto 7.9 % (2.6-8.5); Neutrophils Absolute Auto 4.2 K/mm3 (1.3-6.7); Neutrophils Percent Auto 44.7 % (45.5-73.1); Platelet Count Result 305 k/mm3 (150-375); Red Blood Count 3.93 M/mm3 (4.2-5.4); Red Cell Distribution Width 13.6 % (11.5-14.5); White Blood Count 9.3 K/mm3 (4.5-10.0)
[2023-04-12 20:57] LABS: Alanine Aminotransferase 19 U/L (6-35); Albumin Level 4.2 g/dL (3.5-5.1); Alkaline Phosphatase 49 U/L (38-126); Anion Gap 5 mmol/L (8-16); Aspartate Amino Transferase 29 U/L (14-36); Bilirubin,Total 0.4 mg/dL (0.2-1.3); Blood Urea Nitrogen 10 mg/dL (7-17); Calcium 9.6 mg/dL (8.4-10.2); Carbon Dioxide 27 mmol/L (22-30); Chloride 106 mmol/L (98-107); Estimated CRCL calculation 103 ml/min; Estimated Glomerular Filt Rate > 60; Glucose 111 mg/dL (65-110); Magnesium 2.3 mg/dL (1.6-2.3); Potassium 3.8 mmol/L (3.4-5.0); Sodium 138 mmol/L (137-145)
[2023-04-12 21:08] VITALS: PULSE 96; RESP 20
[2023-04-12 21:09] LABS: Troponin I < 0.012 ng/mL (0.000-0.034)
[2023-04-12 21:10] VITALS: PULSE 105; O2SAT 100
[2023-04-12 21:35] LABS: D Dimer 0.48 ug/mL (<0.48)
[2023-04-12 21:50] LABS: SARS-CoV-2 RNA PCR Negative (Negative)
[2023-04-12 22:08] VITALS: PULSE 107; RESP 20
[2023-04-12] MEDS: methylPREDNISolone SOD SUCC 125 MG VIAL IV PUSH (22:50)
[2023-04-12] MEDS: ACETAMINOPHEN 500 MG TABLET 1000 MG (22:50)
[2023-04-12 22:52] VITALS: BP 135/81; PULSE 84; RESP 18; O2SAT 98
== END 2023-04-12 23:20 | disposition home or self-care (01) ==
PROVIDERS: Emergency Provider Physician Assistant
DX: J45.901 Unspecified asthma with (acute) exacerbation (principal); Z79.51 Long term (current) use of inhaled steroids; Z20.822 Contact with and (suspected) exposure to COVID-19
CPT/HCPCS: 36415; 71046; 80053; 83735; 84484; 85025; 85380; 87635; 94640; 96374; 99284; A9270; J2930

== ENCOUNTER 2023-07-16 14:12 | Emergency (ER) | payer OTHER, SELFPAY ==
[2023-07-16 14:21] VITALS: BP 143/94; PULSE 94; RESP 17; TEMP 36.6; O2SAT 98
--- NOTE | 2023-07-16 17:18 | ED.FEMALEGU ---
HPI - Female Genitourinary General Chief complaint: Vaginal Bleeding Stated complaint: vaginal bleeding/possible miscarriage Time Seen by Provider: 07/16/23 17:07 Source: patient Mode of arrival: ambulatory Limitations: no limitations History of Present Illness HPI Narrative: This is a 32-year-old female who presents to the ED with chief complaint of lower abdominal cramping and vaginal bleeding onset today. Reports she had a recent positive blood test after negative urine test at an Urgent Care and think she has early lawn and a . Reports last normal period in May but she thinks she may have had 2 periods during that month. Reports pain at a 5/10 in the lower abdomen. Reports dark blood when she wipes but is not having significant or saturating pads. Reports that she has been irregularly using her NuvaRing took it out she was informed this week that she is . Denies lightheadedness, syncope, nausea, vomiting, diarrhea or urinary problems. A4 Related Data Home Medications Medication Instructions Recorded Confirmed montelukast 10 mg tablet 10 mg PO DAILY 10/04/20 Allergies Allergy/AdvReac Type Severity Reaction Status Date / Time kiwi Allergy Intermediate Swelling Verified 04/12/23 19:16 shellfish derived Allergy Intermediate hives Verified 04/12/23 19:16 shrimp Allergy Intermediate Other Verified 04/12/23 19:16 Review of Systems Review of Systems: All systems as dictated in [facility] Past Medical History Medical History Asthma Surgical History Surgical History No history of previous surgery Social History Social History Smoking status: Never smoker Gender identity (if verbalized by the patient): Female Exam Narrative: GENERAL: Well-appearing, well-nourished, and in no acute distress. HEAD: Normocephalic, atraumatic. EYES: PERRLA and EOMI. ENT: Nares clear, no rhinorrhea or epistaxis. Mucous membranes moist. Oropharynx without tonsillar hypertrophy exudate or other lesions. NECK: Supple. No adenopathy or masses. CHEST: No respiratory distress. Clear to auscultation. No wheezes rales or rhonchi HEART: Regular rate and rhythm. No murmur heard. Normal peripheral pulses. ABDOMEN: Soft, nontender, nondistended, normal active bowel sounds. MSK: Normal range of motion. No edema. SKIN: Warm, dry, no rash. NEURO: Alert and oriented x3. No focal deficits. PSYCH: Normal mood and affect. Course Vital Signs Vital signs: Vital Signs Temperature 97.9 F 07/16/23 14:21 Pulse Rate 94 07/16/23 14:21 Respiratory Rate 17 07/16/23 14:21 Blood Pressure 143/94 H 07/16/23 14:21 Pulse Oximetry 98 07/16/23 14:21 Oxygen Delivery Room Air 07/16/23 14:21 Temperature 97.9 F 07/16/23 14:21 Pulse Rate 90 07/16/23 19:14 Respiratory Rate 16 07/16/23 19:14 Blood Pressure 140/86 07/16/23 19:14 Pulse Oximetry 100 07/16/23 19:14 Oxygen Delivery Room Air 07/16/23 14:21 MDM - Female Genitourinary MDM Narrative Medical decision making narrative: This is a 32-year-old female who presents to the ED with chief complaint of vaginal bleeding and lower abdominal cramping. Vitals are normal. Exam shows minimal abdominal tenderness. She has no concerning signs such as syncope. She was told she had a positive test at another clinic. Our exam today shows negative serum quantitative. White blood cell count slightly elevated at 13.5. She has evidence of UTI on the UA. She was told that UTI previously and has been taking Macrobid but feels it is not helping. She will be given Keflex prescription instructed to stop taking Macrobid. Pt will be discharged in stable condition. Return precautions given and supportive measures discussed. Pt is understanding
[2023-07-16 17:33] LABS: Basophils Absolute Auto 0.1 K/mm3 (0.0-0.1); Basophils Percent Auto 0.7 % (0.2-1.2); Eosinophils Absolute Auto 0.2 K/mm3 (0-0.3); Eosinophils Percent Auto 1.3 % (0-4.4); Hematocrit 33.9 % (37.0-47.0); Hemoglobin 10.2 g/dL (12.0-15.0); Immature Granulocyte Absolute 0.04 K/mm3 (0.00-0.031); Immature Granulocyte Percent A 0.3 % (0-0.5); Lymphocytes Percent Auto 48.1 % (18.3-44.2); Mean Corpuscular HGB Conc 30.1 g/dl (32-36); Mean Corpuscular Volume 89.7 fl (80-100); Monocytes Percent Auto 7.5 % (2.6-8.5); Neutrophils Absolute Auto 5.7 K/mm3 (1.3-6.7); Neutrophils Percent Auto 42.1 % (45.5-73.1); Platelet Count Result 296 k/mm3 (150-375); Red Blood Count 3.78 M/mm3 (4.2-5.4); Red Cell Distribution Width 14.5 % (11.5-14.5); White Blood Count 13.5 K/mm3 (4.5-10.0)
[2023-07-16 17:41] LABS: Ovalocytes 1+ (NORMAL); Platelet Estimate Adequate (Adequate); Schistocytes None Seen (NORMAL)
[2023-07-16 17:43] LABS: Prothrombin Time 13.9 Seconds (11.1-14.7)
[2023-07-16 17:44] LABS: Partial Thromboplastin Time 27.5 SECONDS (22.3-36.8)
[2023-07-16 18:02] LABS: Beta HCG Quantitative < 2.39 mIU/ML
[2023-07-16 18:55] LABS: Appearance Urine Cloudy (Clear); Bacteria Urine 1+ /hpf; Bilirubin Urine Negative (Negative); Blood Urine 3+ (Negative); Color Urine Yellow (Yellow); Glucose Urine UA Negative (Negative); Ketones Urine Negative (Negative); Leukocyte Esterase Ur Trace LEU/UL (Negative); Need Manual Microscopic Reviewed; Nitrate Urine Negative (Negative); Non Pathogenic Casts 0-2; Protein Urine 1+ mg/dL (Negative); RBC Urine >100 /hpf (0-2); Specific Grav Ur 1.022 (1.001-1.035); Squamous Epithelial Cell Urine Few /hpf (Few); Urobilinogen Urine 0.2 mg/dL (<2.0); pH Urine 5.5 (5.0-9.0)
[2023-07-16 18:59] LABS: Add Urine Microscopic? YES
[2023-07-16 19:14] VITALS: BP 140/86; PULSE 90; RESP 16; O2SAT 100
== END 2023-07-16 19:15 | disposition home or self-care (01) ==
PROVIDERS: Emergency Provider Physician Assistant
DX: N93.9 Abnormal uterine and vaginal bleeding, unspecified (principal); N39.0 Urinary tract infection, site not specified; J45.909 Unspecified asthma, uncomplicated; Z79.51 Long term (current) use of inhaled steroids
CPT/HCPCS: 36415; 81001; 84702; 85025; 85461; 85610; 85730; 86850; 86900; 86901; 87077; 87086; 87088; 99284